=== PATIENT | female | born 1975 | race Caucasian/White ===

== ENCOUNTER → 2017-03-02 | Outpatient (REF) ==
--- NOTE | 2017-03-03 02:22 | REP ---
Clinical: Pain and disability. Technique: AP, lateral, coned-down views of the lumbosacral spine. Findings: AP view demonstrates moderate chronic scoliosis. Pins are identified in the presumed L4 and L5 right pedicles/vertebral bodies without adjoining stabilizing oneal. Laminectomy at the L4 - L5 levels suggested. Diffuse degenerative changes include endplate sclerosis with disc space narrowing and marginal osteophytes as well as hypertrophic facet changes. No obvious acute fracture / compression injury. Subluxation at the presumed L5-L1 level appears chronic. Impression: Chronic changes as described above. Correlation with MRI may be warranted if the patient remains symptomatic. Signed by Hemant Ross MD 03/03/2017 02:13 A
== END ==
LOC: M SMT 09:43
PROVIDERS: ATTEND Internal Medicine
DX: Z02.71 Encounter for disability determination (principal)

== ENCOUNTER → 2017-05-05 | Outpatient (CLI) | payer OTHER ==
[~2017-05-05] MED LIST: DULO1CAP; LEVO50TA5
--- NOTE | 2017-05-05 15:27 | ECGEPIP ---
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 Order Number: [id number] Reading MD: Dwayne Wu Measurements Intervals [place] Rate: 58 P: 7 NM: 160 QRS: -36 QRSD: 104 T: -10 QT: 402 QTc: 395 Interpretive Statements SINUS BRADYCARDIA WITH SINUS ARRHYTHMIA MARKED LEFT AXIS DEVIATION Poor R-wave progression, borderline precordial lead voltages. No prior ECG available for comparison at the time of interpretation. Electronically Signed On 05-05-2017 15:26:52 EDT by Dwayne Wu
== END ==
LOC: M EKG 10:44
PROVIDERS: ATTEND Nurse Practitioner Family
DX: I45.6 Pre-excitation syndrome (principal); R00.1 Bradycardia, unspecified; I49.9 Cardiac arrhythmia, unspecified

== ENCOUNTER → 2017-07-15 | Outpatient (CLI) | payer OTHER ==
--- NOTE | 2017-07-15 11:19 | REP ---
LEFT ANKLE SERIES, FOUR VIEWS: There is no evidence of an acute fracture, dislocation or intrinsic bone disease. There is mild soft tissue swelling. The ankle mortise is anatomic. IMPRESSION: No fracture or dislocation. Signed by Dustin Mathews MD 07/15/2017 02:23 P
== END ==
LOC: M WUC 10:38
PROVIDERS: ATTEND Physician Assistant
DX: J02.9 Acute pharyngitis, unspecified (principal); M25.572 Pain in left ankle and joints of left foot

== ENCOUNTER 2017-07-18 07:50 | Emergency (ER) | payer OTHER ==
[~2017-07-18] VITALS: Ht 149.9 cm; Wt 81.4 kg
[2017-07-18] MEDS ORDERED: LEVO50TA5 (08:09)
[2017-07-18] MEDS ORDERED: DULO1CAP (08:09)
[2017-07-18] MEDS ORDERED: KETOROLAC 30 MG/ML VIAL (J1885) IV ONE (08:30)
--- NOTE | 2017-07-18 08:41 | ECGEPIP ---
Stationary ECG Study [facility] - ED Test Date: 2017-07-18 Pat Name: GARRICK SCHNEIDER Department: Room: - Gender: F Credit Assistant: ami : 1975 Requested By: Olive Delgado Order Number: [id number] Reading MD: Liam Reyes Measurements Intervals [place] Rate: 65 P: 43 LA: 158 QRS: -39 QRSD: 107 T: 0 QT: 390 QTc: 407 Interpretive Statements SINUS RHYTHM LEFT AXIS DEVIATION POOR R WAVE PROGRESSION NSTTW ABNORMALITIES SIMILAR TO 05/05/17 Electronically Signed On 07-18-2017 8:40:58 EDT by Liam Reyes
[2017-07-18 08:47] LABS: BASO # 0.2 K/mm3 (0.0-0.2); BASO % 2.4 % (0.0-1.0); EOS # 0.3 K/mm3 (0.0-0.50); EOS % 4.1 % (0.0-3.0); LARGE UNSTAINED CELL # 0.1 K/mm3 (0.0-0.4); LARGE UNSTAINED CELL % 1.4 % (0.0-4.0); LYMPH # 2.4 K/mm3 (1.5-4.5); LYMPH % 35.3 % (24.0-44.0); MEAN CORPUSCULAR HEMOGLOBIN 31.1 pg (27.0-33.0); MEAN CORPUSCULAR HGB CONC 33.7 g/dl (32.0-36.5); MEAN CORPUSCULAR VOLUME 92.3 fl (80.0-96.0); MONO # 0.3 K/mm3 (0.0-0.8); NEUTROPHILS # 3.6 K/mm3 (1.8-7.7); NEUTROPHILS % 51.9 % (36.0-66.0); PLATELET COUNT, AUTOMATED 266 k/mm3 (150-450); RED CELL DISTRIBUTION WIDTH 12.6 % (11.5-14.5); WHITE BLOOD COUNT 6.8 K/mm3 (4.0-10.0)
[2017-07-18 08:52] LABS: ANION GAP 8 MEQ/L (8-16); BLOOD UREA NITROGEN 11 MG/DL (7-18); CALCIUM LEVEL 8.6 MG/DL (8.5-10.1); CARBON DIOXIDE LEVEL 26 MEQ/L (21-32); CHLORIDE LEVEL 105 MEQ/L (98-107); CREATININE FOR GFR 0.76 MG/DL (0.55-1.02); GLOMERULAR FILTRATION RATE > 60.0 (>58); GLUCOSE, FASTING 97 MG/DL (70-105); POTASSIUM SERUM 3.8 MEQ/L (3.5-5.1); SODIUM LEVEL 139 MEQ/L (136-145)
--- NOTE | 2017-07-18 09:12 | REP ---
Left lower extremity Duplex Doppler venous ultrasound: Real time compression and duplex Doppler interrogation of the left lower extremity deep venous system is performed. The left common femoral, superficial femoral and popliteal veins are fully compressible with transducer pressure and demonstrate normal spontaneous and phasic flow, without evidence of deep venous thrombosis. Impression: No evidence of deep venous thrombosis of the left lower extremity femoral popliteal venous system. Signed by Dustin Mathews MD 07/18/2017 09:03 A
--- NOTE | 2017-07-18 09:31 | REP ---
CHEST, TWO VIEWS: COMPARISON: 07/04/2016 There is no evidence of acute infiltrate. No pleural effusion is seen. The heart is normal in size. The mediastinal silhouette is unremarkable. The visualized osseous structures are intact. There is a hiatal hernia. There is curvature of the thoracolumbar spine, convex to the right. IMPRESSION: No acute pulmonary disease. Signed by Dustin Mathews MD 07/18/2017 05:29 P
[2017-07-18 12:14] VITALS: BP 111/66
== END 2017-07-18 12:11 | disposition home or self-care (01) ==
LOC: M ED 07:50
DX: R07.9 Chest pain, unspecified (principal); R11.0 Nausea; I45.6 Pre-excitation syndrome; Z79.899 Other long term (current) drug therapy
CPT/HCPCS: 71020; 80048; 82550; 82553; 85025; 85379; 93000; 93971; 96374; 99284; J1885

== ENCOUNTER → 2017-07-28 | Outpatient (CLI) | payer OTHER ==
[2017-07-28 10:16] LABS: MEAN CORPUSCULAR HEMOGLOBIN 30.2 pg (27.0-33.0); MEAN CORPUSCULAR HGB CONC 32.2 g/dl (32.0-36.5); MEAN CORPUSCULAR VOLUME 93.7 fl (80.0-96.0); RED CELL DISTRIBUTION WIDTH 12.5 % (11.5-14.5); WHITE BLOOD COUNT 9.2 10^3/uL (4.0-10.0)
[2017-07-28 11:23] LABS: ALBUMIN 3.6 GM/DL (3.2-5.2); ALKALINE PHOSPHATASE 78 U/L (45-117); ALT/SGPT 14 U/L (12-78); ANION GAP 6 MEQ/L (8-16); AST/SGOT 8 U/L (15-37); BILIRUBIN,TOTAL 0.5 MG/DL (0.2-1.0); BLOOD UREA NITROGEN 11 MG/DL (7-18); CALCIUM LEVEL 8.7 MG/DL (8.5-10.1); CARBON DIOXIDE LEVEL 29 MEQ/L (21-32); CHLORIDE LEVEL 105 MEQ/L (98-107); CHOLESTEROL LEVEL 185 MG/DL (<200); CREATININE FOR GFR 0.68 MG/DL (0.55-1.02); GLOMERULAR FILTRATION RATE > 60.0 (>58); GLUCOSE, FASTING 85 MG/DL (70-105); POTASSIUM SERUM 4.2 MEQ/L (3.5-5.1); SODIUM LEVEL 140 MEQ/L (136-145); T UPTAKE 35 % (30-39); THYROXINE (T4) 10.1 UG/DL (4.5-12.0); TOTAL PROTEIN 6.6 GM/DL (6.4-8.2); TRIGLYCERIDES LEVEL 125 MG/DL (<150)
== END ==
LOC: M LAB 09:30
PROVIDERS: ATTEND Nurse Practitioner Family
DX: E03.9 Hypothyroidism, unspecified (principal); R53.81 Other malaise; E78.5 Hyperlipidemia, unspecified; Z13.29 Encounter for screening for other suspected endocrine disorder

== ENCOUNTER → 2017-08-03 | Outpatient (REF) | payer OTHER | LOC: M LAB REF 12:55 | PROVIDERS: ATTEND Advanced Practice Midwife | DX: Z12.4 Encounter for screening for malignant neoplasm of cervix (principal) ==

== ENCOUNTER → 2017-08-05 | Outpatient (CLI) | payer OTHER ==
[~2017-08-05] MED LIST changes: +ISOVUE-370 76% 100ML VIAL (Q9967) As Ordered ONE
--- NOTE | 2017-08-05 15:02 | REP ---
Chest CT with IV contrast, CT pulmonary angiography: There are no comparison studies. There are no emboli in the pulmonary trunk or central pulmonary arteries. There are no emboli in the pulmonary lobe or segment branches. There are no infiltrates or effusions. There are no masses or nodules. There is no hilar, mediastinal or axillary adenopathy. There is a hiatal hernia measuring 6.9 cm transverse diameter. The thoracic aorta is unremarkable. Cardiac size is normal. There is no pericardial effusion. The visualized upper abdominal contents are unremarkable. Impression: There are no pulmonary emboli. Otherwise, essentially negative CT study of the chest except for a hiatal hernia. Signed by Dustin Alegre MD 08/05/2017 02:54 P
== END ==
LOC: M RAD 14:25
PROVIDERS: ATTEND Internal Medicine Cardiovascular Disease
DX: R06.02 Shortness of breath (principal)
CPT/HCPCS: 71275; Q9967

== ENCOUNTER → 2017-11-01 | Outpatient (REF) | payer OTHER, MEDICAID | LOC: M LAB REF 20:13 | DX: E03.9 Hypothyroidism, unspecified (principal) ==

== ENCOUNTER → 2018-01-12 | Outpatient (REF) | payer OTHER, MEDICAID ==
[2018-01-12 19:19] LABS: BASO # 0.1 10^3/uL (0.0-0.2); BASO % 1.7 % (0.0-1.0); EOS # 0.4 10^3/uL (0.0-0.50); EOS % 5.5 % (0.0-3.0); HEMATOCRIT 38.3 % (36.0-47.0); HEMOGLOBIN 12.4 g/dl (12.0-16.0); IMMATURE GRANULOCYTE % 0.4 % (0-3.0); LYMPH # 3.5 10^3/uL (1.5-4.5); LYMPH % 44.8 % (24.0-44.0); MEAN CORPUSCULAR HEMOGLOBIN 30.2 pg (27.0-33.0); MEAN CORPUSCULAR HGB CONC 32.4 g/dl (32.0-36.5); MEAN CORPUSCULAR VOLUME 93.4 fl (80.0-96.0); MONO # 0.6 10^3/uL (0.0-0.8); MONO % 7.9 % (0.0-5.0); NEUTROPHILS # 3.1 10^3/uL (1.8-7.7); NEUTROPHILS % 39.7 % (36.0-66.0); PLATELET COUNT, AUTOMATED 252 10^3/uL (150-450); RED CELL DISTRIBUTION WIDTH 13.2 % (11.5-14.5); WHITE BLOOD COUNT 7.9 10^3/uL (4.0-10.0)
[2018-01-12 19:32] LABS: TOTAL 25(OH) VITAMIN D 23.3 NG/ML (30.0-100.0)
[2018-01-12 19:35] LABS: ALBUMIN 3.8 GM/DL (3.2-5.2); ALBUMIN/GLOBULIN RATIO 1.06 (1.00-1.93); ALKALINE PHOSPHATASE 86 U/L (45-117); ALT/SGPT 16 U/L (12-78); ANION GAP 7 MEQ/L (8-16); AST/SGOT 13 U/L (7-37); BILIRUBIN,TOTAL 0.3 MG/DL (0.2-1.0); BLOOD UREA NITROGEN 12 MG/DL (7-18); CALCIUM LEVEL 8.8 MG/DL (8.5-10.1); CARBON DIOXIDE LEVEL 26 MEQ/L (21-32); CHLORIDE LEVEL 108 MEQ/L (98-107); CREATININE FOR GFR 0.83 MG/DL (0.55-1.30); GLOMERULAR FILTRATION RATE > 60.0 (>58); GLUCOSE, FASTING 86 MG/DL (70-100); IRON (FE) 66 UG/DL (50-170); POTASSIUM SERUM 4.6 MEQ/L (3.5-5.1); SODIUM LEVEL 141 MEQ/L (136-145); TOTAL PROTEIN 7.4 GM/DL (6.4-8.2)
[2018-01-12 21:19] LABS: ESTIMATED AVERAGE GLUCOSE 94 MG/DL (60-110); HEMOGLOBIN A1c 4.9 %
== END ==
LOC: M LAB REF 18:13
DX: E66.09 Other obesity due to excess calories (principal); E03.9 Hypothyroidism, unspecified; E55.9 Vitamin D deficiency, unspecified

== ENCOUNTER → 2018-05-11 | Outpatient (REF) | payer OTHER, MEDICAID ==
[2018-05-11 14:56] LABS: TOTAL 25(OH) VITAMIN D 58.6 NG/ML (30.0-100.0)
== END ==
LOC: M LAB REF 13:51
DX: R53.81 Other malaise (principal)
CPT/HCPCS: 84443

== ENCOUNTER → 2018-08-28 | Outpatient (REF) | payer OTHER, MEDICAID | LOC: M LAB REF 16:29 | DX: E03.9 Hypothyroidism, unspecified (principal) ==

== ENCOUNTER → 2018-11-27 | Outpatient (REF) | payer OTHER, MEDICAID ==
[~2018-11-27] MED LIST changes: -ISOVUE-370 76% 100ML VIAL (Q9967) As Ordered ONE
[2018-11-27 19:33] LABS: THYROID STIMULATING HORMONE 3.55 uIU/ML (0.358-3.740)
== END ==
LOC: M LAB REF 16:29
PROVIDERS: ATTEND Nurse Practitioner Adult Health
DX: E55.9 Vitamin D deficiency, unspecified (principal); E03.9 Hypothyroidism, unspecified

== ENCOUNTER → 2019-05-14 | Outpatient (REF) | payer OTHER, MEDICAID ==
[~2019-05-14] MED LIST changes: -DULO1CAP; +DULO1CAP4
[2019-05-14 17:59] LABS: ALBUMIN 3.5 GM/DL (3.2-5.2); ALT/SGPT 10 U/L (12-78); BILIRUBIN,TOTAL 0.5 MG/DL (0.2-1.0); BLOOD UREA NITROGEN 10 MG/DL (7-18); CALCIUM LEVEL 8.8 MG/DL (8.5-10.1); CARBON DIOXIDE LEVEL 26 MEQ/L (21-32); CHLORIDE LEVEL 110 MEQ/L (98-107); CHOLESTEROL LEVEL 220 MG/DL (<200); CHOLESTEROL RISK RATIO 4.074 (<5); CREATININE FOR GFR 0.84 MG/DL (0.55-1.30); GLOMERULAR FILTRATION RATE > 60.0 (>58); GLUCOSE, FASTING 83 MG/DL (70-100); HDL CHOLESTEROL 54 MG/DL (>40); LDL CHOLESTEROL 140 MG/DL (<100); NON-HDL-C 166 MG/DL; POTASSIUM SERUM 3.8 MEQ/L (3.5-5.1); SODIUM LEVEL 142 MEQ/L (136-145); TOTAL 25(OH) VITAMIN D 30.5 NG/ML (30.0-100.0); TOTAL PROTEIN 7.1 GM/DL (6.4-8.2); TRIGLYCERIDES LEVEL 128 MG/DL (<150)
[2019-05-14 18:15] LABS: HEMOGLOBIN A1c 5.5 %
== END ==
LOC: M LAB REF 16:44
PROVIDERS: ATTEND Nurse Practitioner Adult Health
DX: E03.9 Hypothyroidism, unspecified (principal); Z13.29 Encounter for screening for other suspected endocrine disorder

== ENCOUNTER → 2019-08-13 | Outpatient (REF) | payer OTHER, MEDICAID ==
[2019-08-13 19:44] LABS: THYROID STIMULATING HORMONE 4.93 uIU/ML (0.358-3.740); TOTAL 25(OH) VITAMIN D 36.5 NG/ML (30.0-100.0)
== END ==
LOC: M LAB REF 18:38
PROVIDERS: ATTEND Nurse Practitioner Adult Health
DX: E03.9 Hypothyroidism, unspecified (principal); E55.9 Vitamin D deficiency, unspecified

== ENCOUNTER → 2020-09-10 | Outpatient (REF) | payer OTHER, MEDICAID ==
[2020-09-10 16:58] LABS: FREE T4 1.59 NG/DL (0.76-1.46); THYROID STIMULATING HORMONE 1.78 uIU/ML (0.358-3.740); TOTAL 25(OH) VITAMIN D 49.1 NG/ML (30.0-100.0)
== END ==
LOC: M LAB REF 16:06
PROVIDERS: ATTEND Nurse Practitioner Adult Health
DX: E03.9 Hypothyroidism, unspecified (principal); E55.9 Vitamin D deficiency, unspecified

== ENCOUNTER → 2021-02-02 | Outpatient (REF) | payer OTHER, MEDICAID ==
[2021-02-02 17:43] LABS: BLOOD UREA NITROGEN 11 MG/DL (7-18); CALCIUM LEVEL 8.7 MG/DL (8.5-10.1); CARBON DIOXIDE LEVEL 26 MEQ/L (21-32); CHLORIDE LEVEL 108 MEQ/L (98-107); CREATININE FOR GFR 0.88 MG/DL (0.55-1.30); GLOMERULAR FILTRATION RATE > 60.0 (>58); GLUCOSE, FASTING 83 MG/DL (70-100); POTASSIUM SERUM 4.7 MEQ/L (3.5-5.1); SODIUM LEVEL 141 MEQ/L (136-145)
== END ==
LOC: M LAB REF 16:25
PROVIDERS: ATTEND Physician Assistant
DX: R60.0 Localized edema (principal)

== ENCOUNTER 2021-02-28 15:57 | Inpatient (IN) | payer MEDICAID, OTHER ==
[~2021-02-28] VITALS: Ht 149.9 cm; Wt 72.5 kg
[~2021-02-28 15:57] MED LIST changes: -LEVO50TA5; +LEVO50TA5 PO
[2021-02-28] MEDS ORDERED: sertraline (16:05)
[2021-02-28] MEDS ORDERED: ALBU8.5H INH (16:05)
[2021-02-28] MEDS ORDERED: FAMO1TAB11 PO (16:05)
[2021-02-28] MEDS ORDERED: CHLO125TA PO (16:05)
[2021-02-28] MEDS ORDERED: JUNETAB2 (16:06)
[2021-02-28 16:54] LABS: BASO # 0.1 10^3/uL (0.0-0.2); BASO % 0.6 % (0.0-1.0); EOS # 0.1 10^3/uL (0.0-0.5); EOS % 0.9 % (0.0-3.0); HEMATOCRIT 23.4 % (36.0-47.0); LYMPH # 1.5 10^3/uL (1.5-5.0); LYMPH % 9.4 % (24.0-44.0); MEAN CORPUSCULAR HEMOGLOBIN 18.8 pg (27.0-33.0); MEAN CORPUSCULAR HGB CONC 26.1 g/dl (32.0-36.5); MEAN CORPUSCULAR VOLUME 72.2 fl (80.0-96.0); MONO # 1.1 10^3/uL (0.0-0.8); MONO % 6.8 % (2.0-8.0); NEUTROPHILS # 12.6 10^3/uL (1.5-8.5); NEUTROPHILS % 78.6 % (36.0-66.0); PLATELET COUNT, AUTOMATED 336 10^3/uL (150-450); RED BLOOD COUNT 3.24 10^6/uL (4.00-5.40)
[2021-02-28 16:57] LABS: HEMOGLOBIN 6.1 g/dl (12.0-15.5)
[2021-02-28] MEDS ORDERED: PANTOPRAZOLE 40MG VIAL (C9113 PER 1) IV ONE (17:10)
[2021-02-28] MEDS ORDERED: PANTOPRAZOLE SODIUM 40 MG in D5W 50 ML IV SCH (17:10)
[2021-02-28 17:25] LABS: ALBUMIN 3.1 GM/DL (3.2-5.2); ALT/SGPT 9 U/L (12-78); BILIRUBIN,DIRECT 0.2 MG/DL (0.0-0.2); BILIRUBIN,TOTAL 0.6 MG/DL (0.2-1.0); BLOOD UREA NITROGEN 12 MG/DL (7-18); CALCIUM LEVEL 8.7 MG/DL (8.5-10.1); CARBON DIOXIDE LEVEL 24 MEQ/L (21-32); CHLORIDE LEVEL 104 MEQ/L (98-107); CPK CREATINE PHOSPHOKINASE 30 U/L (26-192); CREATININE FOR GFR 1.24 MG/DL (0.55-1.30); FERRITIN 7 NG/ML (8-252); FREE T4 1.15 NG/DL (0.76-1.46); GLOMERULAR FILTRATION RATE 50.3 (>58); GLUCOSE, FASTING 165 MG/DL (70-100); IRON (FE) 21 UG/DL (50-170); MAGNESIUM LEVEL 2.2 MG/DL (1.8-2.4); PERCENT SATURATION 4.5 % (13.2-45.0); POTASSIUM SERUM 3.5 MEQ/L (3.5-5.1); SODIUM LEVEL 137 MEQ/L (136-145); TOTAL IRON BINDING CAPACITY 465 UG/DL (250-450); TOTAL PROTEIN 7.4 GM/DL (6.4-8.2); TROPONIN I < 0.02 NG/ML (< 0.10)
--- NOTE | 2021-02-28 17:39 | HPEPDOC ---
[facility] Medical History & Physical Date of Admission February 28, 2021 Date of Service: February 28, 2021 Attending Physician: Otilia Urban MD History and Physical CHIEF COMPLAINT: increased weakness, dizziness, feeling faint HISTORY OF PRESENT ILLNESS: Patient is a 45-year-old female with past medical history of depression/anxiety, Gonnu-Fobxdppzl-Yplsu syndrome, hypothyroidism, GERD, scoliosis, arthritis of the back who presented to [facility] emergency room after feeling as though she was going to pass out while she was shopping today. The patient states she was in [employer] when she became suddenly lightheaded, dizzy, diaphoretic, had increased blurry vision. She was with a friend who then brought her to the emergency room to be further evaluated. The patient denied any loss of consciousness, chest pain, vomiting, abdominal pain, history of dysfunctional uterine bleeding, hematemesis, bright blood per rectum, dark stools, hematuria. The patient states that she has had increased lethargy over the past year associated at times with increased shortness of breath and palpitations. Over the last several weeks she feels as though her symptoms have worsened since she began taking Lasix for lower leg swelling. The patient also complains of lightheadedness, dizziness, nausea, blurry vision with her so seated shortness of breath at times. She particularly notices it with exertion and walking long distances. She denies history of ulcers, prior GI bleeds. In the ER vital signs showed blood pressure 102/67, temperature 98.9, heart rate 20806 sinus tachycardia, respiratory rate 1821, 100% on room air. Abnormal labs showed the VDC 16,000, H&H 6.1/23. Iron low at 21, blood sugar elevated at 165. Last H&H on file was from 01/12/2018 and was noted to be 12.4/38. Troponin normal, ECG baseline. The patient has no documented history of prediabetes or diabetes. Occult blood was positive. It was noted by the ER provider that during her occult blood testing it appeared as though her stools were dark but she denies any bright red blood per rectum or prior GI bleed. 3 units of blood were ordered and the patient was consented for blood transfusion. The patient was admitted by the hospitalist service for ? acute on chronic iron deficiency anemia, rule out GI bleed. REVIEW OF SYSTEMS: Neg except mentioned above PAST MEDICAL HISTORY: Depression/anxiety History of Pytwh-Rjbuuuxbo-Wmysk syndrome Hypothyroidism GERD Scoliosis Arthritis of the back PAST SURGICAL HISTORY: Back surgery Appendectomy FAMILY HISTORY: Father: Coronary artery disease, diabetes mellitus, hypertension. at 63 years old Mother: Cardiomyopathy, hypertension, coronary artery disease. at 52 years old SOCIAL HISTORY: Denies smoking, drug use. Drinks alcohol very rarely. Lives locally with her son. She is currently unemployed due to her handicaps. 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 She is a full code. ALLERGIES: Please see below. HOME MEDICATIONS: Please see below. PHYSICAL EXAMINATION: VS: blood pressure 102/67, temperature 98.9, heart rate 41470 sinus tachycardia, respiratory rate 1821, 100% on room air CONSTITUTIONAL: No acute distress, resting comfortably, AAO x 3, pale in appearance EYES: PERRLA, EOM intact, conjunctival pallor HENT, MOUTH: Normocephalic, atraumatic, moist mucous membranes, corrective lenses in place NECK: SUPPLE, no JVD, no lymphadenopathy, no carotid bruit CV: sinus tachycardia , S1S2 normal, no murmurs/rubs/gallops RESPIRATORY: Clear to auscultation bilaterally, no rales/rhonchi/wheezes GI: BS positive in 4 quadrants, soft, nontender, nondistended, no rebound or guarding, no organomegaly : Deferred MUSCULOSKELETAL: Normal ROM. No cyanosis, clubbing, swelling, joint deformity, +1 pitting extremity edema INTEGUMENTARY: Intact, no rashes, no lesions, no erythema NEUROLOGIC: Cranial Nerves II-XII are intact, no focal deficits PSYCHIATRIC: Mood and affect are normal LABORATORY DATA: Please see below IMAGING: CXR: pending ASSESSMENT: 45-year-old female with past medical history of depression/anxiety, Xbchj-Lzkzkdwal-Uvcuj syndrome, hypothyroidism, GERD, scoliosis, arthritis of the back admitted by the hospitalist service for ? acute on chronic iron deficiency anemia, rule out GI bleed. PLAN: Acute ? on chronic severe CLARICE likely 2/2 to GI bleed -Tachycardia, occult blood +, dark stools, low iron, H/H low, LH/dizziness with exertion worse -Denies bleeding hx or any bleeding currently, denies DUB -Last H/H from 12/2017 -Ordered 3 units PRBC to be transfused today, f/u post- tranfusion H/H -Will also benefit from Injectafer infusions prior to discharge as well -Will need colonoscopy/EGD to help identify cause of GI bleed. Called surgery to see if they would want to do that here or see as o/p -PT/INR pending, CBC daily after post-transfusion drawing -PPI BID, CLD for now Lightheadedness, dizziness likely 2/2 to severe CLARICE in combination of diuresis 2/2 to chlorthalidone -C/w treatment above -no events on tele, ECG sinus tachycardia, trop neg -To get tranfusions, hold of on fluids and chlorthalidone -Encourage PO intake -Orthostatics daily -Fall risk, tele SIRS +, r/o infectious source -+ tachycardia, RR >20, WBC 16K -WBC could just be reactive 2/2 to bleed, dehydration -F/u UA, BCx x 2 sets -F/u CXR, no need for additional imaging such as CT abd/pelvis as she denies abd pain, vomiting -Daily CBC, tele Lower extremity swelling, r/o lymphedema? -No increased coughing, no crackles on exam, +1 pitting edema, no JVD -F/u BNP -Holding chlorthalidone Hyperglycemia possibly 2/2 to stress, bleed but also r/o diabetes -BS 165 -f/u HbA1c, lipid panel -Can add FS and ISS if needed Hypothyroidism -TSH wnl -C/w levothyroxine Depression/anxiety -Stable, denies HI/SI -C/w home med Chronic arthritis / scoliosis of back -Stable -Tylenol PRN Hx of WPW syndrome -Follows with Dr. Howard as o/p -has not been of concern for many years -ECG NSR today -Tele GERD -PPI DVT px -SCD, tanvir. chemical px CI 2/2 to GI bleed DISPOSITION: Admitted as acute inpatient. Plan is d/c home when medically improved. Vital Signs Vital Signs Date Time Temp Pulse Resp B/P (MAP) Pulse Ox O2 Delivery O2 Flow Rate FiO2 02/28/21 16:45 104 18 103/58 (73) 99 Room Air 02/28/21 15:58 98.9 Laboratory Data Labs 24H Laboratory Tests 2 02/28/21 16:45: Immature Granulocyte % (Auto) 3.7H, Neutrophils (%) (Auto) 78.6H, Lymphocytes (%) (Auto) 9.4L, Monocytes (%) (Auto) 6.8, Eosinophils (%) (Auto) 0.9, Basophils (%) (Auto) 0.6, Neutrophils # (Auto) 12.6H, Lymphocytes # (Auto) 1.5, Monocytes # (Auto) 1.1H, Eosinophils # (Auto) 0.1, Basophils # (Auto) 0.1, Nucleated Red Blood Cells % (auto) 0.3H, Anion Gap 9, Glomerular Filtration Rate 50.3L, Calcium Level 8.7, Magnesium Level 2.2, Iron Level 21L, Total Iron Binding Capacity 465H, Transferrin % Saturation 4.5L, Ferritin 7L, Total Bilirubin 0.6, Direct Bilirubin 0.2, Aspartate Amino Transf (AST/SGOT) 7, Alanine Aminotransferase (ALT/SGPT) 9L, Alkaline Phosphatase 88, Total Creatine Kinase 30, Troponin I < 0.02, Total Protein 7.4, Albumin 3.1L, Albumin/Globulin Ratio 0.7L, Thyroid Stimulating Hormone (TSH) 3.420, Free Thyroxine 1.15 CBC/BMP Laboratory Tests 02/28/21 16:45 Home Medications Miscellaneous Medications Albuterol Sulfate (Albuterol Sulfate Hfa) 8.5 Gm Hfa.aer.ad Chlorthalidone (Chlorthalidone) 25 Mg Tablet Famotidine (Famotidine) 20 Mg Tablet Levothyroxine Sodium (Levothyroxine Sodium) 50 Mcg Tab Norethindrone AC-Eth Estradiol (Junel 1.5 mg-30 Mcg Tablet) 1 Each Tablet [sertraline] Allergies Coded Allergies: No Known Allergies (Unverified , 06/26/09) A-FIB/CHADSVASC A-FIB History Current/History of A-Fib/PAF?: No Current PO Anticoag Therapy: No Age/Risk Factor Scoring CHADSVASC: CHADSVASC Response (Comments) Value Age Risk Factor Age < 65 years old 0 Gender Risk Factor Female 1 Hx of CHF No 0 Hx of HTN No 0 Hx of Stroke/TIA/or VTE No 0 Hx of Diabetes No 0 Hx of Vascular Disease No 0 Total 1 Treatment Treatment ordered: Other Other anticoagulant ordered: scd Otilia Urban MD February 28, 2021 17:38
--- NOTE | 2021-02-28 17:56 | REP ---
INDICATION: near-syncope. COMPARISON: 07/18/2017 TECHNIQUE: The technique utilized in obtaining the radiograph has magnified the cardiac silhouette and attenuated the interstitial markings. FINDINGS: There is mild cardiomegaly accentuated by technique. The lung palmer are clear. The osseous structures are unchanged. IMPRESSION: There is no evidence of acute cardiopulmonary disease. <Electronically signed by Mario Powell > 02/28/21 0547
[2021-02-28 18:17] LABS: RSV AMPLIFICATION NEGATIVE (NEGATIVE)
[2021-02-28 18:26] LABS: PROTHROMBIN TIME 13.4 SECONDS (12.5-14.3)
[2021-02-28 18:27] LABS: PARTIAL THROMBOPLASTIN TIME 25.7 SECONDS (24.2-38.5)
[2021-02-28] MEDS ORDERED: ALBUTEROL 90 MCG/ACT 8GM HFA INHALER INH PRN (18:30)
[2021-02-28] MEDS ORDERED: NORE1TAB58 PO (18:40)
[2021-02-28] MEDS ORDERED: ZOLO100T PO (18:40)
[2021-02-28 18:45] VITALS: BP 108/69
[2021-02-28 18:58] LABS: CHOLESTEROL LEVEL 194 MG/DL (<200); CHOLESTEROL RISK RATIO 4.409 (<5); HDL CHOLESTEROL 44 MG/DL (>40); LDL CHOLESTEROL 119 MG/DL (<100); NON-HDL-C 150 MG/DL; NT-PRO BNP 331 PG/ML (<125); TRIGLYCERIDES LEVEL 156 MG/DL (<150)
[2021-02-28 19:21] LABS: CK-MB VALUE MASS < 1.0 NG/ML (<3.6); MB/CK RELATIVE INDEX 3.33 (< OR =4)
[2021-02-28] MEDS ORDERED: FERROUS SULFATE 325MG TAB PO SCH (21:00)
[2021-02-28] MEDS: PANTOPRAZOLE 40MG VIAL (C9113 PER 1) IV SCH (21:02)
[2021-02-28 21:16] VITALS: BP 146/60
[2021-02-28 21:31] VITALS: BP 122/79
[2021-02-28 22:16] VITALS: BP 115/73
[2021-02-28 23:16] VITALS: BP 119/76
[2021-03-01] VITALS (18 sets, daily range): BP systolic 103–137; BP diastolic 56–87
[2021-03-01] MEDS: LEVOTHYROXINE 50MCG TABLET (0.05MG) PO SCH (06:09)
[2021-03-01 07:35] LABS: HEMATOCRIT 32.5 % (36.0-47.0); MEAN CORPUSCULAR HEMOGLOBIN 22.5 pg (27.0-33.0); MEAN CORPUSCULAR HGB CONC 29.5 g/dl (32.0-36.5); MEAN CORPUSCULAR VOLUME 76.1 fl (80.0-96.0); PLATELET COUNT, AUTOMATED 255 10^3/uL (150-450); RED BLOOD COUNT 4.27 10^6/uL (4.00-5.40); WHITE BLOOD COUNT 13.3 10^3/uL (4.0-10.0)
[2021-03-01 07:41] LABS: HEMOGLOBIN 9.6 g/dl (12.0-15.5)
[2021-03-01 07:57] LABS: ALBUMIN 2.9 GM/DL (3.2-5.2); ALT/SGPT 8 U/L (12-78); BLOOD UREA NITROGEN 11 MG/DL (7-18); CARBON DIOXIDE LEVEL 23 MEQ/L (21-32); CHLORIDE LEVEL 106 MEQ/L (98-107); CREATININE FOR GFR 1.03 MG/DL (0.55-1.30); GLOMERULAR FILTRATION RATE > 60.0 (>58); GLUCOSE, FASTING 105 MG/DL (70-100); POTASSIUM SERUM 3.5 MEQ/L (3.5-5.1); SODIUM LEVEL 139 MEQ/L (136-145); TROPONIN I < 0.02 NG/ML (< 0.10)
[2021-03-01] MEDS: PANTOPRAZOLE 40MG VIAL (C9113 PER 1) IV SCH ×2 (08:21→20:16)
[2021-03-01] MEDS ORDERED: FERRIC CARBOXYMALTOSE INJ 750 MG, VIAL MATE ADAPTER 1 EACH in NS 250 ML IV ONE (10:00)
--- NOTE | 2021-03-01 10:02 | ECGEPIP ---
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
[2021-03-01] MEDS: SERTRALINE 100 MG TAB PO SCH (12:11)
--- NOTE | 2021-03-01 14:10 | IPNPDOC ---
Date Seen The patient was seen on 03/01/21. Progress Note SUBJECTIVE: Feels much improved s/p 3 units PRBC. H/H 9.632 this AM. Episode of chest pain early AM; however, cardiac w/u neg. LH, dizziness resolved and, with walking test this AM, she denied symptoms. IV iron today. Denies SOB, fevers, chills, n/v/d. OBJECTIVE: PHYSICAL EXAMINATION: VS: Please see below CONSTITUTIONAL: No acute distress, resting comfortably, AAO x 3, more pink in color today EYES: PERRLA, EOM intact, conjunctival pallor improved HENT, MOUTH: Normocephalic, atraumatic, moist mucous membranes, corrective lenses in place NECK: SUPPLE, no JVD, no lymphadenopathy, no carotid bruit CV: NSR , S1S2 normal, no murmurs/rubs/gallops RESPIRATORY: Clear to auscultation bilaterally, no rales/rhonchi/wheezes GI: BS positive in 4 quadrants, soft, nontender, nondistended, no rebound or guarding, no organomegaly : Deferred MUSCULOSKELETAL: Normal ROM. No cyanosis, clubbing, swelling, joint deformity, +1 pitting extremity edema INTEGUMENTARY: Intact, no rashes, no lesions, no erythema NEUROLOGIC: Cranial Nerves II-XII are intact, no focal deficits PSYCHIATRIC: Mood and affect are normal LABORATORY DATA: Please see below IMAGING: CXR: There is no evidence of acute cardiopulmonary disease. ASSESSMENT: 45-year-old female with past medical history of depression/anxiety, Umqkr-Rzmublofk-Hyblb syndrome, hypothyroidism, GERD, scoliosis, arthritis of the back admitted by the hospitalist service for ? acute on chronic iron deficiency anemia, rule out GI bleed. PLAN: Acute ? on chronic severe CLARICE likely 2/2 to GI bleed -S/p 3 units PRBC, h/H much improved to 9.6/32.5 (12/2017 12.), resolved LH/dizziness, NSR -Denies bleeding hx or any bleeding currently, denies DUB -To receive Injectafer infusion today -Will need colonoscopy/EGD to help identify cause of GI bleed. Called GI (Dr. Eagle) to see if they would want to do that here or see as o/p - recommending transfusions, d/c with f/u with their office -PT/INR pending, CBC daily after post-transfusion drawing -PPI BID, advancing diet today Lightheadedness, dizziness likely 2/2 to severe CLARICE in combination of diuresis 2/2 to chlorthalidone- resolved -C/w treatment above -no events on tele, ECG sinus tachycardia, trop neg -Encourage PO intake Leukocytosis possibly 2/2 bleed, dehydration -Improving, afebrile -UA neg, CXR neg, BCx x 2 sets pending -Not currently on abx -Daily CBC, tele Lower extremity swelling, r/o lymphedema? -No increased coughing, no crackles on exam, +1 pitting edema, no JVD -BNP 331 and minimally elevated -Holding chlorthalidone for now -Will need echocardiogram, f/u with cardiology as o/p Hyperglycemia possibly 2/2 to stress, bleed but also r/o diabetes -BS improved -f/u HbA1c -Can add FS and ISS if needed Hypothyroidism -TSH wnl -C/w levothyroxine Depression/anxiety -Stable, denies HI/SI -C/w home med Chronic arthritis / scoliosis of back -Stable -Tylenol PRN Hx of WPW syndrome -Follows with Dr. Howard as o/p -has not been of concern for many years -ECG NSR today -Tele GERD -PPI DVT px -SCD, tanvir. chemical px CI 2/2 to GI bleed DISPOSITION: Admitted as acute inpatient. Plan is d/c home when medically improved, likely 03/02/21 VS, I&O, 24H, Fishbone Vital Signs/I&O Vital Signs Date Time Temp Pulse Resp B/P (MAP) Pulse Ox O2 Delivery O2 Flow Rate FiO2 03/01/21 13:49 98.6 98 17 125/84 (98) 97 Room Air I&O- Last 24 Hours up to 6 AM 03/01/21 05:59 Intake Total 1420 ml Output Total 750 ml Balance 670 ml Laboratory Data 24H LABS Laboratory Tests 2 02/28/21 16:45: Immature Granulocyte % (Auto) 3.7H, Neutrophils (%) (Auto) 78.6H, Lymphocytes (%) (Auto) 9.4L, Monocytes (%) (Auto) 6.8, Eosinophils (%) (Auto) 0.9, Basophils (%) (Auto) 0.6, Neutrophils # (Auto) 12.6H, Lymphocytes # (Auto) 1.5, Monocytes # (Auto) 1.1H, Eosinophils # (Auto) 0.1, Basophils # (Auto) 0.1, Nucleated Red Blood Cells % (auto) 0.3H, Prothrombin Time 13.4, Prothromb Time International Ratio 1.00, Activated Partial Thromboplast Time 25.7, Anion Gap 9, Glomerular Filtration Rate 50.3L, Calcium Level 8.7, Magnesium Level 2.2, Iron Level 21L, Total Iron Binding Capacity 465H, Transferrin % Saturation 4.5L, Ferritin 7L, Total Bilirubin 0.6, Direct Bilirubin 0.2, Aspartate Amino Transf (AST/SGOT) 7, Alanine Aminotransferase (ALT/SGPT) 9L, Alkaline Phosphatase 88, Total Creatine Kinase 30, Creatine Kinase MB < 1.0, Creatine Kinase MB Relative Index 3.33, Troponin I < 0.02, AC-Xvp-Y-Type Natriuretic Peptide 331H, Total Protein 7.4, Albumin 3.1L, Albumin/Globulin Ratio 0.7L, Triglycerides Level 156H, Total Cholesterol 194, LDL Cholesterol 119H, Non-HDL Cholesterol (LDL + VLDL) 150, Total HDL Cholesterol 44, Cholesterol/HDL Ratio 4.409, Thyroid Stimulating Hormone (TSH) 3.420, Free Thyroxine 1.15 02/28/21 17:29: Coronavirus (COVID-19)(PCR) NEGATIVE, Influenza Type A (RT-PCR) NEGATIVE, Influenza Type B (RT-PCR) NEGATIVE, Respiratory Syncytial Virus (PCR) NEGATIVE 02/28/21 21:07: Urine Color YELLOW, Urine Appearance HAZY, Urine pH 5.0, Urine Specific [place] 1.003, Urine Protein NEGATIVE, Urine Glucose (UA) NEGATIVE, Urine Ketones NEGATIVE, Urine Blood 3+H, Urine Nitrite NEGATIVE, Urine Bilirubin NEGATIVE, Urine Urobilinogen 0.2, Urine Leukocyte Esterase NEGATIVE, Urine WBC (Auto) 4H, Urine RBC (Auto) 2, Urine Hyaline Casts (Auto) 0, Urine Bacteria (Auto) NEGATIVE, Urine Squamous Epithelial Cells 2, Urine Mucus (Auto) SMALL, Urine Sperm (Auto) 03/01/21 07:19: Nucleated Red Blood Cells % (auto) 0.2H, Anion Gap 10, Glomerular Filtration Rate > 60.0, Calcium Level 9.0, Total Bilirubin 1.0#, Aspartate Amino Transf (AST/SGOT) 7, Alanine Aminotransferase (ALT/SGPT) 8L, Alkaline Phosphatase 77, Troponin I < 0.02, Total Protein 7.0, Albumin 2.9L, Albumin/Globulin Ratio 0.7L CBC/BMP Laboratory Tests 02/28/21 16:45 03/01/21 07:19 Microbiology Microbiology 02/28/21 Blood Culture, Received Pending 02/28/21 Blood Culture, Received Pending Otilia Urban MD March 01, 2021 14:10
--- NOTE | 2021-03-01 19:18 | ECGEPIP ---
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 Order Number: [id number] Reading MD: Durga Jones Measurements Intervals [place] Rate: 85 P: 38 [place]: 150 QRS: -44 QRSD: 88 T: 5 QT: 368 QTc: 437 Interpretive Statements Normal sinus rhythm Left axis deviation/Left anterior hemiblock Poor R wave progression Compared to prior tracings (3) in the system No remarkable changes Electronically Signed on 03-01-2021 19:17:42 EDT by Durga Jones
[2021-03-01] MEDS: ONDANSETRON 4 MG TAB PO PRN (20:16)
[2021-03-01] MEDS: ACETAMINOPHEN TAB 650MG DOSE (2X325MG) PO PRN (22:03)
[2021-03-02] MEDS: ONDANSETRON 4 MG TAB PO PRN ×3 (02:49→20:09)
[2021-03-02] MEDS: LEVOTHYROXINE 50MCG TABLET (0.05MG) PO SCH (05:38)
[2021-03-02 06:00] VITALS: BP 131/81
[2021-03-02 06:03] LABS: HEMOGLOBIN 9.4 g/dl (12.0-15.5); MEAN CORPUSCULAR HEMOGLOBIN 22.5 pg (27.0-33.0); MEAN CORPUSCULAR HGB CONC 29.4 g/dl (32.0-36.5); MEAN CORPUSCULAR VOLUME 76.7 fl (80.0-96.0); PLATELET COUNT, AUTOMATED 265 10^3/uL (150-450); RED BLOOD COUNT 4.17 10^6/uL (4.00-5.40); WHITE BLOOD COUNT 17.4 10^3/uL (4.0-10.0)
[2021-03-02 06:31] LABS: ALBUMIN 2.7 GM/DL (3.2-5.2); ALT/SGPT 7 U/L (12-78); BILIRUBIN,TOTAL 0.7 MG/DL (0.2-1.0); BLOOD UREA NITROGEN 7 MG/DL (7-18); CALCIUM LEVEL 8.4 MG/DL (8.5-10.1); CARBON DIOXIDE LEVEL 22 MEQ/L (21-32); CHLORIDE LEVEL 109 MEQ/L (98-107); CREATININE FOR GFR 0.65 MG/DL (0.55-1.30); GLOMERULAR FILTRATION RATE > 60.0 (>58); GLUCOSE, FASTING 123 MG/DL (70-100); POTASSIUM SERUM 3.8 MEQ/L (3.5-5.1); SODIUM LEVEL 140 MEQ/L (136-145); TOTAL PROTEIN 6.7 GM/DL (6.4-8.2)
[2021-03-02 06:36] VITALS: BP_SYST 131; BP_SYST 132; BP_SYST 135; BP_DIAS 82; BP_DIAS 86; BP_DIAS 87
[2021-03-02] MEDS ORDERED: PROT1TAB2 PO (08:26)
[2021-03-02] MEDS ORDERED: COLA100C5 PO (08:33)
[2021-03-02] MEDS ORDERED: FERR325T3 PO (08:33)
[2021-03-02] MEDS: SERTRALINE 100 MG TAB PO SCH (09:15)
[2021-03-02] MEDS: PANTOPRAZOLE 40MG VIAL (C9113 PER 1) IV SCH ×2 (09:15→20:09)
--- NOTE | 2021-03-02 12:09 | REP ---
INDICATION: LLE swelling with upper thigh pain , r/o DVT COMPARISON: 2517. TECHNIQUE: Real time compression and duplex Doppler interrogation of the right lower extremity deep venous system is performed. FINDINGS: There is occlusive thrombus in the left common femoral and superficial femoral veins. There is nonocclusive thrombus in the popliteal vein. There is occlusive thrombus in the proximal portion of the greater saphenous vein. IMPRESSION: There is occlusive thrombus in the left common femoral and superficial femoral veins. There is nonocclusive thrombus in the popliteal vein. There is occlusive thrombus in the proximal portion of the greater saphenous vein. <Electronically signed by Dustin Mathews > 03/02/21 5407
[2021-03-02] MEDS ORDERED: HEPARIN DRIP 25,000 UNITS in IV 1 EA IV SCH (13:55)
[2021-03-02 14:00] VITALS: BP 119/91
--- NOTE | 2021-03-02 14:22 | IPNPDOC ---
Date Seen The patient was seen on 03/02/21. Progress Note SUBJECTIVE: No increased bleeding overnight, GI upset from Injectafer. LLE pain and increased swelling today, multiple clots seen on LLE doppler. D/w Fco, placed on heparin gtt and will see tonight. Aside from some nausea, denies increased s/s of bleeding, vomiting, shortness of breath, chest pain. OBJECTIVE: PHYSICAL EXAMINATION: VS: Please see below CONSTITUTIONAL: No acute distress, resting comfortably, AAO x 3 EYES: PERRLA, EOM intact, conjunctival pallor HENT, MOUTH: Normocephalic, atraumatic, moist mucous membranes, corrective lenses in place NECK: SUPPLE, no JVD, no lymphadenopathy, no carotid bruit CV: NSR , S1S2 normal, no murmurs/rubs/gallops RESPIRATORY: Clear to auscultation bilaterally, no rales/rhonchi/wheezes GI: BS positive in 4 quadrants, soft, nontender, nondistended, no rebound or guarding, no organomegaly : Deferred MUSCULOSKELETAL: Normal ROM. No cyanosis, clubbing, swelling, joint deformity, +1 pitting extremity edema LLE L >R INTEGUMENTARY: Intact, no rashes, no lesions, no erythema NEUROLOGIC: Cranial Nerves II-XII are intact, no focal deficits PSYCHIATRIC: Mood and affect are normal LABORATORY DATA: Please see below IMAGING: LLE doppler: There is occlusive thrombus in the left common femoral and superficial femoral veins. There is nonocclusive thrombus in the popliteal vein. There is occlusive thrombus in the proximal portion of the greater saphenous vein. CXR: No evidence of CP disease ASSESSMENT: 45-year-old female with past medical history of depression/anxiety, Ddnhy-Jyyhtkkdd-Ceuqr syndrome, hypothyroidism, GERD, scoliosis, arthritis of the back admitted by the hospitalist service for ? acute on chronic iron deficiency anemia, rule out GI bleed. PLAN: Occlusive and nonocclusive thrombi LLE, likely provoked 2/2 to Estrogen use -On Estrogen at home, no other RF. Chronic swelling (L>R) for many months w ithout prior US on file -LLE doppler above -Concomitant GI bleed -Plan after discussing with GI and approved by patient: starting on heparin gtt, Dr. Eagle to see this evening. For possible EGD and colonoscopy 5/11/21. -Heparin gtt protocol, watch for s/s of bleeding Acute ? on chronic severe CLARICE likely 2/2 to GI bleed -Occult blood +, dark stools on admission, low iron -Denies bleeding hx or any bleeding currently, denies DUB -H/H today s/p 3 units PRBC and 1 dose Injectafer 9. (BL from 12/2017 12) -Will need colonoscopy/EGD to help identify cause of GI bleed. Dr. Eagle consulted and will see this evening, f/u recommendations for further workup -Watch for worsening labs with being on heparin gtt -PPI BID, CLD for now Lightheadedness, dizziness likely 2/2 to severe CLARICE in combination of diuresis 2/2 to chlorthalidone- resolved -C/w treatment above -no events on tele, ECG sinus tachycardia, trop neg -Orthostatics neg -S/p blood and iron infusion, have been holding chlorthalidone -Encourage PO intake Leukocytosis poss reactive 2/2 to clot burden vs. 2/2 to GI upset from Injectafer infusion 03/01/21 -No other identified infection: CXR neg, BCx neg, UA neg, no abdominal pain on admission -Afebrile but WBC increased further today, resolved tachycardia -F/u daily labs, tx above Hyperglycemia possibly 2/2 to stress, bleed but also r/o diabetes -BS 123 this AM -HbA1c sent out of hospital due to being out of certain "parameters"- per lab this is usually due to level being too high or (more commonly) too low- perhaps low admission H/H contributed to this -Lipid panel completed -Can add FS and ISS if needed Hypothyroidism -TSH wnl -C/w levothyroxine Depression/anxiety -Stable, denies HI/SI -C/w home med Chronic arthritis / scoliosis of back -Stable -Tylenol PRN Hx of WPW syndrome -Follows with Dr. Howard as o/p -has not been of concern for many years -ECG NSR today -Tele GERD -PPI BID DVT px -heparin gtt DISPOSITION: Admitted as acute inpatient. Dr. Eagle consulted and will see this evening. Plan is d/c home when medically improved VS, I&O, 24H, Fishbone Vital Signs/I&O Vital Signs Date Time Temp Pulse Resp B/P (MAP) Pulse Ox O2 Delivery O2 Flow Rate FiO2 03/02/21 06:36 84 132/82 (99) 88 135/86 (102) 100 131/87 (102) 03/02/21 06:00 98.2 17 95 Room Air I&O- Last 24 Hours up to 6 AM 03/02/21 06:00 Intake Total 2070 ml Output Total 500 ml Balance 1570 ml Laboratory Data 24H LABS Laboratory Tests 2 03/02/21 05:49: Nucleated Red Blood Cells % (auto) 0.3H, Anion Gap 9, Glomerular Filtration Rate > 60.0, Calcium Level 8.4L, Total Bilirubin 0.7, Aspartate Amino Transf (AST/SGOT) 10, Alanine Aminotransferase (ALT/SGPT) 7L, Alkaline Phosphatase 78, Total Protein 6.7, Albumin 2.7L, Albumin/Globulin Ratio 0.7L CBC/BMP Laboratory Tests 03/02/21 05:49 Microbiology Microbiology 02/28/21 Blood Culture - Preliminary, Resulted No growth after 24 hours . All specim... 02/28/21 Blood Culture - Preliminary, Resulted No growth after 24 hours . All specim... Otilia Urban MD March 02, 2021 14:22
[2021-03-02 19:22] LABS: VITAMIN B12 LEVEL 764 PG/ML
[2021-03-02 22:00] VITALS: BP 120/65
[2021-03-02] MEDS ORDERED: CALCIUM CARBONATE 500 MG CHEW U/D PO PRN (23:15)
[2021-03-02] MEDS ORDERED: HEPARIN SOD (PORCINE) 5000UNITS/ML 1ML VIAL/SYRINGE IV PRN (23:20)
[2021-03-02] MEDS: ACETAMINOPHEN TAB 650MG DOSE (2X325MG) PO PRN (23:29)
[2021-03-03 05:36] LABS: HEMATOCRIT 32.2 % (36.0-47.0); HEMOGLOBIN 9.4 g/dl (12.0-15.5); MEAN CORPUSCULAR HEMOGLOBIN 22.5 pg (27.0-33.0); MEAN CORPUSCULAR HGB CONC 29.2 g/dl (32.0-36.5); MEAN CORPUSCULAR VOLUME 77.2 fl (80.0-96.0); PLATELET COUNT, AUTOMATED 327 10^3/uL (150-450); RED BLOOD COUNT 4.17 10^6/uL (4.00-5.40); WHITE BLOOD COUNT 20.2 10^3/uL (4.0-10.0)
[2021-03-03] MEDS: SUCRALFATE 1 GM TAB PO PRN ×2 (05:55→10:33)
[2021-03-03] MEDS: LEVOTHYROXINE 50MCG TABLET (0.05MG) PO SCH (05:55)
[2021-03-03 06:00] VITALS: BP 126/78
[2021-03-03 06:01] LABS: ALBUMIN 2.5 GM/DL (3.2-5.2); ALT/SGPT 7 U/L (12-78); BILIRUBIN,TOTAL 0.5 MG/DL (0.2-1.0); BLOOD UREA NITROGEN 7 MG/DL (7-18); CALCIUM LEVEL 8.7 MG/DL (8.5-10.1); CARBON DIOXIDE LEVEL 28 MEQ/L (21-32); CHLORIDE LEVEL 107 MEQ/L (98-107); CREATININE FOR GFR 0.64 MG/DL (0.55-1.30); GLOMERULAR FILTRATION RATE > 60.0 (>58); GLUCOSE, FASTING 121 MG/DL (70-100); POTASSIUM SERUM 3.4 MEQ/L (3.5-5.1); SODIUM LEVEL 138 MEQ/L (136-145); TOTAL PROTEIN 7.2 GM/DL (6.4-8.2); TROPONIN I < 0.02 NG/ML (< 0.10)
[2021-03-03 06:13] VITALS: BP_SYST 124; BP_SYST 126; BP_SYST 152; BP_DIAS 78; BP_DIAS 86; BP_DIAS 90
[2021-03-03] MEDS: SERTRALINE 100 MG TAB PO SCH (09:34)
[2021-03-03] MEDS: PANTOPRAZOLE 40MG VIAL (C9113 PER 1) IV SCH (09:34)
[2021-03-03] MEDS: PANTOPRAZOLE 40MG TAB (PROTONIX) PO SCH ×2 (10:31→22:25)
[2021-03-03] MEDS: ACETAMINOPHEN TAB 650MG DOSE (2X325MG) PO PRN ×2 (10:33→22:25)
[2021-03-03 11:46] LABS: PARTIAL THROMBOPLASTIN TIME 51.9 SECONDS (24.2-38.5)
[2021-03-03 12:43] LABS: INR 1.12; PROTHROMBIN TIME 14.7 SECONDS (12.5-14.3)
[2021-03-03] MEDS: APIXABAN 5 MG TAB (ELIQUIS) PO SCH ×2 (13:41→22:31)
[2021-03-03 14:00] VITALS: BP 128/87
--- NOTE | 2021-03-03 14:00 | IPNPDOC ---
Text Note Date of Service The patient was seen on 03/03/21. NOTE SUBJECTIVE: Denies noted s/s of bleeding, vomiting, shortness of breath, chest pain. OBJECTIVE: VS: Please see below CONSTITUTIONAL: No acute distress, resting comfortably, AAO x 3 EYES: PERRLA, EOM intact, conjunctival pallor HENT, MOUTH: Normocephalic, atraumatic, moist mucous membranes, corrective lenses in place NECK: SUPPLE, no JVD, no lymphadenopathy, no carotid bruit CV: NSR , S1S2 normal, no murmurs/rubs/gallops RESPIRATORY: Clear to auscultation bilaterally, no rales/rhonchi/wheezes GI: BS positive in 4 quadrants, soft, nontender, nondistended, no rebound or guarding, no organomegaly : Deferred MUSCULOSKELETAL: Normal ROM. No cyanosis, clubbing, swelling, joint deformity, +1 pitting extremity edema LLE L >R INTEGUMENTARY: Intact, no rashes, no lesions, no erythema NEUROLOGIC: Cranial Nerves II-XII are intact, no focal deficits PSYCHIATRIC: Mood and affect are normal LABORATORY DATA: Reviewed WBC 20.2 Hgb 9.4 platelets 327 na 138 K 3.4 Cr 0.64 IMAGING: LLE doppler: There is occlusive thrombus in the left common femoral and superficial femoral veins. There is nonocclusive thrombus in the popliteal vein. There is occlusive thrombus in the proximal portion of the greater saphenous vein. CXR: No evidence of CP disease ASSESSMENT: 45-year-old W with past medical history of depression/anxiety, Mlszs-Xagtijuse-Fsbfk syndrome, hypothyroidism, GERD, scoliosis, arthritis of the back admitted by the hospitalist service for acute on chronic iron deficiency anemia to rule out GI bleed. PLAN: LLE DVT, likely provoked 2/2 to Estrogen use -On Estrogen at home, no other RF. Chronic swelling (L>R) for many months without prior US on file -LLE doppler above -switch to eliquis from heparin gtt Acute ? 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 -H/H today is stable, s/p 3 units PRBC and 1 dose Injectafer 9.4/32 (BL from 12/2017 12.) -Suspicion of GI bleeding without evidence of it. Also reports history of chronic -Dr. Eagle saw patient, no cinda evidence of GIB with long history of menometrorrhagia and recommended outpatient GI f/u for possible EGD and colonoscopy though he had low suspicion this is GI driven. Lightheadedness, dizziness likely 2/2 to severe CLARICE in combination of diuresis 2/2 to chlorthalidone- resolved -C/w treatment above -no events on tele, ECG sinus tachycardia, trop neg -Orthostatics neg -S/p blood and iron infusion, have been holding chlorthalidone -Encourage PO intake Leukocytosis poss reactive 2/2 to clot burden vs. 2/2 to GI upset from Injectafer infusion 03/01/21 -No other identified infection: CXR neg, BCx neg, UA neg, no abdominal pain on admission -Afebrile but WBC increased further today?, resolved tachycardia -F/u daily labs, tx above Hyperglycemia possibly 2/2 to stress, bleed but also r/o diabetes -BS 123 this AM -HbA1c sent out of hospital due to being out of certain "parameters"- per lab this is usually due to level being too high or (more commonly) too low? 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 Howard as o/p -has not been of concern for many years -ECG NSR on admission -DC telemetry GERD -PPI PO daily DVT px -switch heparin gtt to eliquis DISPOSITION: Admitted as acute inpatient. Plan is d/c home tomorrow AM after trial of regular diet and switch to eliquis. VS,Fishbone, I+O VS, Fishbone, I+O Laboratory Tests 03/03/21 05:28 Vital Signs Date Time Temp Pulse Resp B/P (MAP) Pulse Ox O2 Delivery O2 Flow Rate FiO2 03/03/21 06:13 69 126/78 (94) 80 152/90 (110) 93 124/86 (99) 03/03/21 06:00 97.0 17 95 Room Air I&O- Last 24 Hours up to 6 AM 03/03/21 06:00 Intake Total 1400 ml Output Total 600 ml Balance 800 ml YAHAIRA WOOTEN MD March 03, 2021 10:53
--- NOTE | 2021-03-03 15:03 | ECGEPIP ---
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 Order Number: [id number] Reading MD: Dwayne Wu Measurements Intervals Sylva Rate: 74 P: 35 IA: 142 QRS: -47 QRSD: 90 T: 12 QT: 384 QTc: 426 Interpretive Statements Normal sinus rhythm Left anterior fascicular block Minimal voltage criteria for LVH, may be normal variant ( Micha product ) Poor R wave progression Nonspecific T wave abnormality No significant change compared with 03/01/2021. Electronically Signed on 03-03-2021 15:03:41 EDT by Dwayne Wu
[2021-03-03] MEDS: ONDANSETRON 4 MG TAB PO PRN (18:19)
[2021-03-03 22:00] VITALS: BP 148/86
[2021-03-04 06:00] VITALS: BP 129/83
[2021-03-04] MEDS: LEVOTHYROXINE 50MCG TABLET (0.05MG) PO SCH (06:06)
[2021-03-04 06:57] VITALS: BP_SYST 134; BP_DIAS 87; BP_DIAS 93
[2021-03-04] MEDS: SERTRALINE 100 MG TAB PO SCH (09:58)
[2021-03-04] MEDS: ACETAMINOPHEN TAB 650MG DOSE (2X325MG) PO PRN (09:58)
[2021-03-04] MEDS: APIXABAN 5 MG TAB (ELIQUIS) PO SCH (09:58)
[2021-03-04] MEDS: PANTOPRAZOLE 40MG TAB (PROTONIX) PO SCH (09:58)
[2021-03-04] MEDS ORDERED: PANT40TA29 PO (10:03)
[2021-03-04] MEDS ORDERED: ELIQ5TAB PO (10:03)
[2021-03-04 10:06] LABS: HEMATOCRIT 35.6 % (36.0-47.0); HEMOGLOBIN 10.1 g/dl (12.0-15.5); MEAN CORPUSCULAR HEMOGLOBIN 22.5 pg (27.0-33.0); MEAN CORPUSCULAR HGB CONC 28.4 g/dl (32.0-36.5); MEAN CORPUSCULAR VOLUME 79.5 fl (80.0-96.0); PLATELET COUNT, AUTOMATED 386 10^3/uL (150-450); RED BLOOD COUNT 4.48 10^6/uL (4.00-5.40); WHITE BLOOD COUNT 15.8 10^3/uL (4.0-10.0)
--- NOTE | 2021-03-04 12:57 | DS.PDOC ---
Discharge Summary General Date of Admission February 28, 2021 at 17:29 Date of Discharge 03/04/2021 Attending Physician: YAHAIRA WOOTEN MD Discharge Summary PROCEDURES PERFORMED DURING STAY: None ADMITTING DIAGNOSES: Symptomatic anemia DISCHARGE DIAGNOSES: Symptomatic anemia with CLARICE i/s/o history c/w menometrorrhagia LLE DVT Depression/anxiety History of Jnqcn-Sbqpbqeya-Gselh syndrome Hypothyroidism GERD Scoliosis Arthritis of the back COMPLICATIONS/CHIEF COMPLAINT: Gi Bleed. HISTORY OF PRESENT ILLNESS: 45-year-old W with past medical history of depression/anxiety, W mnvi-Zytkpgtmp-Itlvr syndrome, hypothyroidism, GERD, scoliosis, arthritis of the back who presented to [facility] emergency room after feeling as though she was going to pass out while she was shopping. The patient stated she was in [employer] when she became suddenly lightheaded, dizzy, diaphoretic, had increased blurry vision and then had a friend who brought her to the emergency room to be further evaluated. The patient denied any loss of consciousness, chest pain, vomiting, abdominal pain, history of dysfunctional uterine bleeding, hematemesis, bright blood per rectum, dark stools, hematuria. The patient states that she has had increased lethargy over the past year associated at times with increased shortness of breath and palpitations. Over the last several weeks she feels as though her symptoms have worsened since she began taking Lasix for lower leg swelling. The patient also complained of lightheadedness, dizziness, nausea, blurry vision with her so seated shortness of breath at times. She particularly noticed it with exertion and walking long distances. She denied a history of u lcers or prior history of GI bleeds. HOSPITAL COURSE: In the ER vital signs showed blood pressure 102/67, temperature 98.9, heart rate 02022 sinus tachycardia, respiratory rate 1821, 100% on room air. Abnormal labs showed the WBC 16,000, H&H 6.1/23. Iron low at 21, blood sugar elevated at 165. Last H&H on file was from 01/12/2018 and was noted to be 12.4/38. Troponin normal, ECG baseline. The patient had no documented history of prediabetes or diabetes. Occult blood was reportedly positive. It was noted by the ER provider that during her occult blood testing it appeared as though her stools were dark but she denies any bright red blood per rectum or prior GI bleed. On further investigation and asking, she reported a history of heavy irregular menses for which she was told that she was iron deficient and is established with gynecology. During her ER exam she actually was have menstrual bleeding but denied a history of dark, tarry stool or blood stool ever. 3 units of blood were ordered and the patient was consented for blood transfusion. The patient was admitted by the hospitalist service for acute on chronic iron deficiency anemia to rule out GI bleed. She ultimately received 3u pRBCs in total with stable H/H for the rest of her hospital stay. She was given 1 dose of injectafer with mild GI upset after and was later begun on BID ferrous sulfate for iron repletion. I called Dr. Eagle given that he had initially been consulted for potential GIB and he agreed that he also had low suspicion of GIB and suspected that her losses were likely gynecological and not from the GI tract. He recommended outpatient GI referral for elective EGD/colo to r/o GIB but did not see an i ndication for emergent inpatient scoping. Her course was c/b by noted LLE swelling for which she had a venous doppler US and was found to have a occlusive thrombus in the left common femoral and superficial femoral veins, nonocclusive thrombus in the popliteal vein and an occlusive thrombus in the proximal portion of the greater saphenous vein likely 2/2 estrogen hormonal therapy and so she was urged to stop taking it until she is evaluated by gynecology and PCP in the outpatient setting. She was started on eliquis for her DVT. DISCHARGE MEDICATIONS: Please see below. ALLERGIES: Please see below. PHYSICAL EXAMINATION ON DISCHARGE: VITAL SIGNS: Please see below. CONSTITUTIONAL: No acute distress, resting comfortably, AAO x 3 EYES: PERRLA, EOM intact, conjunctival pallor HENT, MOUTH: Normocephalic, atraumatic, moist mucous membranes, corrective lenses in place NECK: SUPPLE, no JVD, no lymphadenopathy, no carotid bruit CV: NSR , S1S2 normal, no murmurs/rubs/gallops RESPIRATORY: Clear to auscultation bilaterally, no rales/rhonchi/wheezes GI: BS positive in 4 quadrants, soft, nontender, nondistended, no rebound or guarding, no organomegaly : Deferred MUSCULOSKELETAL: Normal ROM. No cyanosis, clubbing, swelling, joint deformity, +1 pitting extremity edema LLE L >R INTEGUMENTARY: Intact, no rashes, no lesions, no erythema NEUROLOGIC: Cranial Nerves II-XII are intact, no focal deficits PSYCHIATRIC: Mood and affect are normal LABORATORY DATA: Please see below. IMAGING: CXR: No acute pathology LLE doppler venous US: There is occlusive thrombus in the left common femoral and superficial femoral veins. There is nonocclusive thrombus in the popliteal vein. There is occlusive thrombus in the proximal portion of the greater saphenous vein. IMPRESSION: There is occlusive thrombus in the left common femoral and superficial femoral veins. There is nonocclusive thrombus in the popliteal vein. There is occlusive thrombus in the proximal portion of the greater saphenous vein. PROGNOSIS: Good ACTIVITY: As tolerated DIET: regular DISCHARGE PLAN: Home DISPOSITION: Home DISCHARGE INSTRUCTIONS: Eliquis 10mg BID for 6d, then 5mg BID thereafter. Ferrous sulfate 325 mg BID. Close PCP and junior qa analyst follow up. ITEMS TO FOLLOWUP ON ON OUTPATIENT: Anemia Menometrorrhagia DVT DISCHARGE CONDITION: Stable TIME SPENT ON DISCHARGE: 34 minutes. Vital Signs/I&Os Vital Signs Date Time Temp Pulse Resp B/P (MAP) Pulse Ox O2 Delivery O2 Flow Rate FiO2 03/04/21 06:57 83 134/87 (103) 96 134/93 (107) 96 134/93 (107) 03/04/21 06:00 98.0 20 94 Room Air I&O- Last 24 Hours up to 6 AM 03/04/21 06:00 Intake Total 1310 ml Output Total 350 ml Balance 960 ml Laboratory Data Labs 24H Laboratory Tests 2 03/04/21 04:14: Activated Partial Thromboplast Time 49.6H 03/04/21 09:32: Activated Partial Thromboplast Time 43.2H, Nucleated Red Blood Cells % (auto) 0.0 CBC/BMP Laboratory Tests 03/04/21 09:32 Microbiology Microbiology 03/03/21 Stool Occult Blood (AMY) - Final, Complete 02/28/21 Blood Culture - Preliminary, Resulted No Growth after 72 hours. All specime... 02/28/21 Blood Culture - Preliminary, Resulted No Growth after 72 hours. All specime... Discharge Medications Scheduled Apixaban (Eliquis) 5 Mg Tablet, 10 MG PO ASDIRECTED 10mg twice daily for 6d, then 5mg twice daily thereafter. Chlorthalidone (Chlorthalidone) 25 Mg Tablet, 25 MG PO DAILY, (Reported) Docusate Sodium (Colace) 100 Mg Capsule, 100 MG PO DAILY Ferrous Sulfate (Ferrous Sulfate) 325 Mg Tablet.dr, 325 MG PO BID Levothyroxine Sodium (Levothyroxine Sodium) 50 Mcg Tab, 50 MCG PO DAILY, (Reported) Norethindrone AC-Eth Estradiol (Elizabeth 21 1.5 mg-30 Mcg Tab) 1 Each Tablet, 1 TAB PO DAILY, (Reported) Pantoprazole Sodium (Protonix) 40 Mg Tablet.dr, 40 MG PO BID Pantoprazole Sodium (Pantoprazole Sodium) 40 Mg Tablet.dr, 40 MG PO BID Sertraline Hcl (Zoloft) 100 Mg Tablet, 100 MG PO DAILY, (Reported) Scheduled PRN Albuterol Sulfate (Albuterol Sulfate Hfa) 8.5 Gm Hfa.aer.ad, 2 PUFF INH Q4H PRN for PAIN, (Reported) Allergies Coded Allergies: No Known Allergies (Unverified , 06/26/09) YAHAIRA WOOTEN MD March 04, 2021 12:57
== END 2021-03-04 13:38 | disposition home or self-care (01) | DRG 663 ==
LOC: M ED 15:57 → M ED INP 17:29 → ENRESERV 18:02 → M MSPAV 18:40
PROVIDERS: ADMIT Internal Medicine; ATTEND Internal Medicine
PROC: 30233N1 Transfusion of Nonautologous Red Blood Cells into Peripheral Vein, Percutaneous Approach (ICD-10-PCS; principal; 2021-02-28)
DX: D50.9 Iron deficiency anemia, unspecified (principal); M41.9 Scoliosis, unspecified; F32.9 Major depressive disorder, single episode, unspecified; N92.1 Excessive and frequent menstruation with irregular cycle; R53.1 Weakness; F41.9 Anxiety disorder, unspecified; I45.6 Pre-excitation syndrome; E03.9 Hypothyroidism, unspecified; K21.9 Gastro-esophageal reflux disease without esophagitis; M47.9 Spondylosis, unspecified; R00.0 Tachycardia, unspecified; Z90.49 Acquired absence of other specified parts of digestive tract; D72.829 Elevated white blood cell count, unspecified; R60.0 Localized edema; R07.89 Other chest pain; I82.4Z2 Acute embolism and thrombosis of unspecified deep veins of left distal lower extremity; R73.9 Hyperglycemia, unspecified; Z79.899 Other long term (current) drug therapy; Z20.822 Contact with and (suspected) exposure to COVID-19

== ENCOUNTER 2021-04-20 12:33 | Emergency (ER) | payer OTHER ==
[~2021-04-20] VITALS: Ht 149.9 cm; Wt 76.8 kg
[~2021-04-20 12:33] MED LIST changes: +ALBU8.5H INH; +CHLO125TA PO; +COLA100C5 PO; +ELIQ5TAB PO; +FAMO1TAB11 PO; +FERR325T3 PO; +JUNETAB2; +NORE1TAB58 PO; +PANT40TA29 PO; +PROT1TAB2 PO; +ZOLO100T PO; +sertraline
--- NOTE | 2021-04-20 16:09 | REP ---
INDICATION: pain, swelling, hx clots COMPARISON: None. TECHNIQUE: Mathews scale and color Doppler evaluation using linear high frequency transducer. FINDINGS: Ultrasound examination of the right lower extremity deep venous structures demonstrates nonocclusive thrombus extending from the common femoral vein to the distal superficial femoral vein followed by occluding thrombus at the popliteal vein. Evaluation of the more distal calf veins is limited due to surrounding edema. Contralateral CFV demonstrates nonocclusive thrombus consistent with the patient's given history of left lower extremity DVT. IMPRESSION: Occlusive and nonocclusive thrombus in the right common femoral through popliteal vein. <Electronically signed by Hemant Ross > 04/20/21 [id number]
[2021-04-20 17:38] VITALS: BP 125/82
== END 2021-04-20 17:42 | disposition home or self-care (01) ==
LOC: M ED 12:33
DX: I82.401 Acute embolism and thrombosis of unspecified deep veins of right lower extremity (principal); Z91.030 Bee allergy status; Z79.899 Other long term (current) drug therapy; Z79.01 Long term (current) use of anticoagulants

== ENCOUNTER 2021-07-28 11:16 | Emergency (ER) | payer OTHER ==
[~2021-07-28] VITALS: Ht 149.9 cm; Wt 75.0 kg
--- NOTE | 2021-07-28 14:04 | REP ---
INDICATION: pain and swelling behind knee COMPARISON: 03/02/2021, 04/20/2021 TECHNIQUE: Mathews scale and color Doppler evaluation using linear high frequency transducer. FINDINGS: Ultrasound examination of the left lower extremity demonstrates nonocclusive thrombus from the common femoral vein to the popliteal vein as well as within the proximal greater saphenous vein. Left calf veins are not evaluated due to edema and swelling. Limited examination of the right common femoral vein also demonstrates small focus of nonocclusive thrombus. IMPRESSION: Nonocclusive likely chronic thrombus improved as compared with prior examinations dated 04/20/2021 and 03/02/2021. <Electronically signed by Hemant Ross > 07/28/21 1400
[2021-07-28 15:31] VITALS: BP 138/75
== END 2021-07-28 15:32 | disposition home or self-care (01) ==
LOC: M ED 11:16
DX: I82.402 Acute embolism and thrombosis of unspecified deep veins of left lower extremity (principal); R60.9 Edema, unspecified; J45.909 Unspecified asthma, uncomplicated; E03.9 Hypothyroidism, unspecified; I45.6 Pre-excitation syndrome; M41.9 Scoliosis, unspecified; Z91.030 Bee allergy status; Z79.899 Other long term (current) drug therapy; Z79.01 Long term (current) use of anticoagulants

== ENCOUNTER → 2021-08-11 | Outpatient (CLI) | payer OTHER ==
[~2021-08-11] MED LIST changes: +ISOVUE-370 76% 100ML VIAL As Ordered ONE
--- NOTE | 2021-08-11 15:13 | REP ---
INDICATION: DVT OF LOWER EXT COMPARISON: 08/05/2017 the only prior TECHNIQUE: CT angiography of the chest attention pulmonary arteries after the intravenous administration of 75 cc Isovue 370. FINDINGS: There is excellent visualization of the pulmonary arterial vasculature. There are no focal filling defects present that would be considered consistent with acute pulmonary emboli. There is no mediastinal or hilar adenopathy. There is a hiatal hernia status quo. There are no pleural or pericardial effusions. There is no change in the imaged upper abdomen. There is an unchanged sclerotic lesion in T6. Evaluation of the lung palmer shows no new abnormal nodules, masses, or opacities. There is a stable 6 mm size nodule in the left lower lobe. IMPRESSION: There is no evidence of a pulmonary embolism or significant change compared to the prior exam with findings as described above. <Electronically signed by Mario Powell > 08/11/21 [id number]
== END ==
LOC: M RAD 14:18
PROVIDERS: ATTEND Pediatrics
DX: I82.409 Acute embolism and thrombosis of unspecified deep veins of unspecified lower extremity (principal)
CPT/HCPCS: 71275; Q9967

== ENCOUNTER → 2021-12-23 | Outpatient (CLI) | payer OTHER ==
[~2021-12-23] MED LIST changes: -ISOVUE-370 76% 100ML VIAL As Ordered ONE; +LEVO75TA4 PO
== END ==
LOC: M RAD 12:32
PROVIDERS: ATTEND Surgery
DX: I82.512 Chronic embolism and thrombosis of left femoral vein (principal)

== ENCOUNTER → 2022-03-30 | Outpatient (CLI) | payer OTHER | LOC: M CARPUL 13:38 | PROVIDERS: ATTEND Pediatrics | DX: I35.8 Other nonrheumatic aortic valve disorders (principal); I34.8 Other nonrheumatic mitral valve disorders ==

== ENCOUNTER → 2022-07-21 | Outpatient (REF) | payer OTHER, MEDICAID | LOC: M SFHCWAGY 17:24 | PROVIDERS: ATTEND Nurse Practitioner Family | DX: Z12.4 Encounter for screening for malignant neoplasm of cervix (principal); Z77.9 Other contact with and (suspected) exposures hazardous to health ==

== ENCOUNTER → 2022-07-27 | Outpatient (CLI) | payer OTHER | LOC: M WHC 08:51 | PROVIDERS: ATTEND Nurse Practitioner Family | DX: Z12.31 Encounter for screening mammogram for malignant neoplasm of breast (principal); R92.8 Other abnormal and inconclusive findings on diagnostic imaging of breast ==

== ENCOUNTER → 2022-08-23 | Outpatient (REF) | payer OTHER ==
[2022-08-23 17:26] LABS: BASO # 0.1 10^3/uL (0.0-0.2); EOS # 0.4 10^3/uL (0.0-0.5); EOS % 4.2 % (0.0-3.0); HEMATOCRIT 39.5 % (36.0-47.0); HEMOGLOBIN 12.1 g/dl (12.0-15.5); LYMPH # 2.2 10^3/uL (1.5-5.0); LYMPH % 23.8 % (24.0-44.0); MEAN CORPUSCULAR HEMOGLOBIN 28.8 pg (27.0-33.0); MEAN CORPUSCULAR HGB CONC 30.6 g/dl (32.0-36.5); MONO # 0.6 10^3/uL (0.0-0.8); MONO % 6.9 % (2.0-8.0); NEUTROPHILS # 5.8 10^3/uL (1.5-8.5); NEUTROPHILS % 63.8 % (36.0-66.0); PLATELET COUNT, AUTOMATED 276 10^3/uL (150-450); WHITE BLOOD COUNT 9.2 10^3/uL (4.0-10.0)
[2022-08-23 18:11] LABS: ALBUMIN 3.5 GM/DL (3.2-5.2); ALT/SGPT 12 U/L (12-78); BILIRUBIN,TOTAL 0.3 MG/DL (0.2-1.0); BLOOD UREA NITROGEN 10 MG/DL (7-18); CALCIUM LEVEL 9.4 MG/DL (8.5-10.1); CARBON DIOXIDE LEVEL 26 MEQ/L (21-32); CHLORIDE LEVEL 105 MEQ/L (98-107); CHOLESTEROL LEVEL 230 MG/DL (<200); CHOLESTEROL RISK RATIO 4.181 (<5); CREATININE FOR GFR 0.88 MG/DL (0.55-1.30); GLOMERULAR FILTRATION RATE > 60.0 (>58); GLUCOSE, FASTING 93 MG/DL (70-100); HDL CHOLESTEROL 55 MG/DL (>40); LDL CHOLESTEROL 148 MG/DL (<100); NON-HDL-C 175 MG/DL; SODIUM LEVEL 136 MEQ/L (136-145); TOTAL PROTEIN 7.1 GM/DL (6.4-8.2); TRIGLYCERIDES LEVEL 135 MG/DL (<150)
== END ==
LOC: M LAB REF 16:35
PROVIDERS: ATTEND Pediatrics
DX: E66.01 Morbid (severe) obesity due to excess calories (principal); E78.5 Hyperlipidemia, unspecified; E03.9 Hypothyroidism, unspecified

== ENCOUNTER → 2022-12-20 | Outpatient (CLI) | payer OTHER | LOC: M PLAIMG 12:08 | PROVIDERS: ATTEND Pediatrics | DX: R91.1 Solitary pulmonary nodule (principal) ==

== ENCOUNTER → 2022-12-20 | Outpatient (CLI) | payer OTHER | LOC: M WHC 12:11 | PROVIDERS: ATTEND Nurse Practitioner Family | DX: Z53.9 Procedure and treatment not carried out, unspecified reason (principal) ==

== ENCOUNTER → 2023-01-17 | Outpatient (REF) | payer OTHER ==
[2023-01-17 18:48] LABS: BASO # 0.1 10^3/uL (0.0-0.2); BASO % 1.6 % (0.0-1.0); EOS # 0.4 10^3/uL (0.0-0.5); EOS % 4.4 % (0.0-3.0); HEMATOCRIT 42.2 % (36.0-47.0); HEMOGLOBIN 13.1 g/dl (12.0-15.5); LYMPH # 2.4 10^3/uL (1.5-5.0); LYMPH % 29.2 % (24.0-44.0); MEAN CORPUSCULAR HEMOGLOBIN 29.9 pg (27.0-33.0); MEAN CORPUSCULAR VOLUME 96.3 fl (80.0-96.0); MONO # 0.6 10^3/uL (0.0-0.8); MONO % 7.9 % (2.0-8.0); NEUTROPHILS # 4.6 10^3/uL (1.5-8.5); NEUTROPHILS % 56.3 % (36.0-66.0); PLATELET COUNT, AUTOMATED 264 10^3/uL (150-450); RED BLOOD COUNT 4.38 10^6/uL (4.00-5.40); WHITE BLOOD COUNT 8.2 10^3/uL (4.0-10.0)
[2023-01-17 19:19] LABS: TOTAL IRON BINDING CAPACITY 338 UG/DL (250-425)
[2023-01-17 19:21] LABS: IRON (FE) 52 UG/DL (50-170); PERCENT SATURATION 15.4 % (13.2-45.0)
[2023-01-17 19:23] LABS: ALBUMIN 3.6 G/DL (3.2-5.2); ALKALINE PHOSPHATASE 118 U/L (46-116); ALT/SGPT 9 U/L (7.0-40); AST/SGOT 14 U/L (<34); BILIRUBIN,TOTAL 0.4 MG/DL (0.3-1.2); BLOOD UREA NITROGEN 12 MG/DL (9-23); CALCIUM LEVEL 9.3 MG/DL (8.5-10.1); CARBON DIOXIDE LEVEL 22 MMOL/L (20-31); CHLORIDE LEVEL 107 MMOL/L (98-107); CHOLESTEROL LEVEL 203 MG/DL (<200); CHOLESTEROL RISK RATIO 4.37 (<5); CREATININE FOR GFR 0.85 MG/DL (0.55-1.30); GLOMERULAR FILTRATION RATE > 60.0 (>58); GLUCOSE, FASTING 84 MG/DL (60-100); HDL CHOLESTEROL 46.4 MG/DL (>40); LDL CHOLESTEROL 134.4 MG/DL (<100); NON-HDL-C 156.6 MG/DL; POTASSIUM SERUM 4.5 MMOL/L (3.5-5.1); SODIUM LEVEL 139 MMOL/L (136-145); THYROID STIMULATING HORMONE 0.555 uIU/ML (0.55-4.78); TRIGLYCERIDES LEVEL 111 MG/DL (<150)
[2023-01-17 20:20] LABS: HEMOGLOBIN A1c 4.6 % (4.0-6.0)
== END ==
LOC: M LAB REF 17:01
PROVIDERS: ATTEND Pediatrics
DX: E78.5 Hyperlipidemia, unspecified (principal); E66.01 Morbid (severe) obesity due to excess calories; E61.1 Iron deficiency; E03.9 Hypothyroidism, unspecified

== ENCOUNTER → 2023-05-04 | Outpatient (CLI) | payer OTHER | LOC: M SLEEP HO 10:51 | PROVIDERS: ATTEND Internal Medicine Cardiovascular Disease | DX: G47.33 Obstructive sleep apnea (adult) (pediatric) (principal); R60.0 Localized edema; R00.1 Bradycardia, unspecified ==

== ENCOUNTER → 2023-07-08 | Outpatient (REF) | payer OTHER, MEDICAID ==
[2023-07-08 13:30] LABS: BASO # 0.1 10^3/uL (0.0-0.2); BASO % 2.1 % (0.0-1.0); EOS # 0.3 10^3/uL (0.0-0.5); EOS % 5.2 % (0.0-3.0); HEMATOCRIT 34.5 % (36.0-47.0); HEMOGLOBIN 9.7 g/dl (12.0-15.5); LYMPH % 29.7 % (24.0-44.0); MEAN CORPUSCULAR HEMOGLOBIN 25.8 pg (27.0-33.0); MEAN CORPUSCULAR HGB CONC 28.1 g/dl (32.0-36.5); MEAN CORPUSCULAR VOLUME 91.8 fl (80.0-96.0); MONO # 0.6 10^3/uL (0.0-0.8); MONO % 9.6 % (2.0-8.0); NEUTROPHILS # 3.5 10^3/uL (1.5-8.5); NEUTROPHILS % 52.8 % (36.0-66.0); PLATELET COUNT, AUTOMATED 250 10^3/uL (150-450); RED BLOOD COUNT 3.76 10^6/uL (4.00-5.40); WHITE BLOOD COUNT 6.6 10^3/uL (4.0-10.0)
[2023-07-08 13:34] LABS: PERCENT SATURATION 5.1 % (13.2-45.0)
[2023-07-08 13:39] LABS: FERRITIN 11.2 NG/ML (7.3-270.7); THYROID STIMULATING HORMONE 2.585 uIU/ML (0.55-4.78)
== END ==
LOC: M LAB REF 12:25
PROVIDERS: ATTEND Pediatrics
DX: E03.9 Hypothyroidism, unspecified (principal); E61.1 Iron deficiency

== ENCOUNTER → 2023-11-01 | Outpatient (CLI) | payer OTHER ==
[~2023-11-01] MED LIST changes: +ACET1TAB37 PO; +ALBU6.7H6 INH; +CVS-161 PO; +LEVO112T2 PO; +MULT-90 PO
== END ==
LOC: M WHC 12:05
PROVIDERS: ATTEND Internal Medicine Hematology & Oncology
DX: Z12.31 Encounter for screening mammogram for malignant neoplasm of breast (principal)

== ENCOUNTER → 2023-11-15 | Outpatient (CLI) | payer OTHER | LOC: M WHC 10:08 | PROVIDERS: ATTEND Obstetrics & Gynecology | DX: N92.6 Irregular menstruation, unspecified (principal) ==

== ENCOUNTER → 2023-11-23 | Outpatient (REF) | payer OTHER, MEDICAID | LOC: M SFHCWAGY 17:50 | PROVIDERS: ATTEND Obstetrics & Gynecology | DX: N93.9 Abnormal uterine and vaginal bleeding, unspecified (principal) ==

== ENCOUNTER → 2024-02-15 | Outpatient (REF) | payer OTHER ==
[2024-02-15 13:22] LABS: BASO # 0.1 10^3/uL (0.0-0.2); BASO % 1.4 % (0.0-1.0); EOS # 0.3 10^3/uL (0.0-0.5); EOS % 3.6 % (0.0-3.0); HEMATOCRIT 41.5 % (36.0-47.0); HEMOGLOBIN 13.5 g/dl (12.0-15.5); LYMPH # 2.5 10^3/uL (1.5-5.0); LYMPH % 29.4 % (24.0-44.0); MEAN CORPUSCULAR HEMOGLOBIN 30.1 pg (27.0-33.0); MEAN CORPUSCULAR HGB CONC 32.5 g/dl (32.0-36.5); MEAN CORPUSCULAR VOLUME 92.6 fl (80.0-96.0); MONO # 0.7 10^3/uL (0.0-0.8); MONO % 7.7 % (2.0-8.0); NEUTROPHILS # 4.9 10^3/uL (1.5-8.5); NEUTROPHILS % 57.1 % (36.0-66.0); PLATELET COUNT, AUTOMATED 259 10^3/uL (150-450); RED BLOOD COUNT 4.48 10^6/uL (4.00-5.40); WHITE BLOOD COUNT 8.7 10^3/uL (4.0-10.0)
[2024-02-15 14:12] LABS: ALBUMIN 3.7 G/DL (3.2-5.2); ALKALINE PHOSPHATASE 123 U/L (46-116); ALT/SGPT 10 U/L (7.0-40); AST/SGOT 11 U/L (<34); BILIRUBIN,TOTAL 0.5 MG/DL (0.3-1.2); BLOOD UREA NITROGEN 14 MG/DL (9-23); CALCIUM LEVEL 9.6 MG/DL (8.5-10.1); CARBON DIOXIDE LEVEL 28 MMOL/L (20-31); CHLORIDE LEVEL 102 MMOL/L (98-107); CREATININE FOR GFR 0.91 MG/DL (0.55-1.30); FERRITIN 19.3 NG/ML (7.3-270.7); FOLLICLE STIMULATING HORMONE 35.4 mIU/ML; GLOMERULAR FILTRATION RATE > 60.0 (>58); GLUCOSE, FASTING 85 MG/DL (60-100); LUTEINIZING HORMONE 42.4 mIU/ML; POTASSIUM SERUM 4.6 MMOL/L (3.5-5.1); SODIUM LEVEL 136 MMOL/L (136-145); THYROID STIMULATING HORMONE 0.057 uIU/ML (0.55-4.78)
== END ==
LOC: M LAB REF 12:53
PROVIDERS: ATTEND Pediatrics
DX: E61.1 Iron deficiency (principal); N95.1 Menopausal and female climacteric states; K21.9 Gastro-esophageal reflux disease without esophagitis; E03.9 Hypothyroidism, unspecified

== ENCOUNTER 2024-03-12 05:57 | Day surgery (SDC) | payer OTHER ==
[~2024-03-12] VITALS: Ht 149.9 cm; Wt 98.3 kg
[2024-03-12] VITALS (8 sets, daily range): BP systolic 110–135; BP diastolic 62–82; TEMP 97.5–97.9; O2SAT 94–97
[~2024-03-12 05:57] MED LIST changes: +FLON1SPR; +PROA1AER2 INH; +SYNT100T PO
[2024-03-12 06:57] LABS: HEMATOCRIT 41.3 % (36.0-47.0); HEMOGLOBIN 13.3 g/dl (12.0-15.5); MEAN CORPUSCULAR HEMOGLOBIN 29.7 pg (27.0-33.0); MEAN CORPUSCULAR HGB CONC 32.2 g/dl (32.0-36.5); MEAN CORPUSCULAR VOLUME 92.2 fl (80.0-96.0); PLATELET COUNT, AUTOMATED 257 10^3/uL (150-450); RED BLOOD COUNT 4.48 10^6/uL (4.00-5.40); WHITE BLOOD COUNT 8.5 10^3/uL (4.0-10.0)
[2024-03-12] MEDS: METHYLENE BLUE 0.5% (5MG/ML) 10 ML AMP (PROVAYBLUE) As Ordered ONE (07:15)
[2024-03-12] MEDS: ceFAZolin SOD 2 GM in IV 1 EA IV ONE (07:30)
[2024-03-12] MEDS ORDERED: propofoL 200 MG/20 ML VIAL As Ordered ONE (08:03)
[2024-03-12] MEDS ORDERED: MIDAZOLAM INJ 2MG/2ML VIAL As Ordered ONE (08:03)
[2024-03-12] MEDS ORDERED: HYDROmorphone HCL 2MG/ML 1ML VIAL As Ordered ONE (08:03)
[2024-03-12] MEDS ORDERED: fentaNYL 100 MCG/2 ML INJECTION As Ordered ONE (08:03)
[2024-03-12] MEDS ORDERED: ONDANSETRON 4MG 2ML VIAL As Ordered ONE (08:03)
[2024-03-12] MEDS ORDERED: SUGAMMADEX SODIUM 500 MG/5 ML VIAL (BRIDION) As Ordered ONE (08:03)
[2024-03-12] MEDS ORDERED: ROCURONIUM BROMIDE 50MG/5ML VIAL As Ordered ONE (08:03)
[2024-03-12] MEDS ORDERED: LIDOCAINE 2% 100MG/5ML SDV (FOR ANES.) As Ordered ONE (08:03)
[2024-03-12] MEDS ORDERED: ACETAMINOPHEN 1000MG 100ML IV BAG As Ordered ONE (08:03)
[2024-03-12] MEDS ORDERED: GLYCOPYRROLATE INJ 0.2 MG/ML 2 ML VIAL As Ordered ONE (08:12)
[2024-03-12] MEDS ORDERED: fentaNYL 100 MCG/2 ML INJECTION IV PRN (09:50)
[2024-03-12] MEDS ORDERED: HYDROMORPHONE HCL 0.5 MG/ 0.5 ML SYRINGE IV PRN (09:50)
[2024-03-12] MEDS ORDERED: oxyCODONE 5MG TAB PO PRN (09:50)
[2024-03-12] MEDS: ONDANSETRON 4MG 2ML VIAL IV PRN (10:15)
[2024-03-12] MEDS: LR 1,000 ML IV SCH ×2 (10:16→11:58)
[2024-03-12] MEDS ORDERED: ONDANSETRON 4MG 2ML VIAL IV PRN (11:45)
[2024-03-12] MEDS ORDERED: PERCOCET 5MG/325MG TAB PO PRN (11:45)
[2024-03-12] MEDS ORDERED: HOME MED LIST COMPLETE! XX SCH (15:00)
[2024-03-12] MEDS ORDERED: ACET1TAB55 PO (15:00)
[2024-03-12] MEDS: KETOROLAC 30 MG/ML 1ML VIAL IV SCH (16:26)
[2024-03-12] MEDS: FLUTICASONE PROP 0.05% NASAL SPRAY 16 GM (FLONASE) NARES SCH (18:08)
[2024-03-12] MEDS: SERTRALINE 100 MG TAB PO SCH (18:08)
[2024-03-12] MEDS: PERCOCET 5MG/325MG TAB PO PRN (20:57)
[2024-03-13] VITALS: BP 111/67; TEMP 98.3; O2SAT 95
[2024-03-13 06:00] VITALS: BP 108/57; TEMP 98; O2SAT 95
[2024-03-13] MEDS: LEVOTHYROXINE 100MCG TABLET (0.1MG) PO SCH (06:00)
[2024-03-13 07:39] LABS: HEMATOCRIT 33.9 % (36.0-47.0); MEAN CORPUSCULAR HEMOGLOBIN 29.6 pg (27.0-33.0); MEAN CORPUSCULAR HGB CONC 31.6 g/dl (32.0-36.5); MEAN CORPUSCULAR VOLUME 93.9 fl (80.0-96.0); PLATELET COUNT, AUTOMATED 214 10^3/uL (150-450); RED BLOOD COUNT 3.61 10^6/uL (4.00-5.40); WHITE BLOOD COUNT 10.8 10^3/uL (4.0-10.0)
[2024-03-13 07:46] LABS: HEMOGLOBIN 10.7 g/dl (12.0-15.5)
[2024-03-13 08:00] VITALS: BP 111/69; TEMP 98.6; O2SAT 95
[2024-03-13] MEDS: APIXABAN 5 MG TAB (ELIQUIS) PO SCH (09:35)
[2024-03-13] MEDS: PANTOPRAZOLE 40MG TAB (PROTONIX) PO SCH (09:35)
== END 2024-03-13 11:44 | disposition home or self-care (01) ==
LOC: M SDC 05:57 → M PED 11:00 → M SDC 03-13 11:44
PROVIDERS: ATTEND Obstetrics & Gynecology
DX: N83.291 Other ovarian cyst, right side (principal); D25.1 Intramural leiomyoma of uterus; D25.2 Subserosal leiomyoma of uterus; N93.9 Abnormal uterine and vaginal bleeding, unspecified; I45.6 Pre-excitation syndrome; E03.9 Hypothyroidism, unspecified; K21.9 Gastro-esophageal reflux disease without esophagitis; Z86.718 Personal history of other venous thrombosis and embolism; M54.9 Dorsalgia, unspecified; J45.909 Unspecified asthma, uncomplicated; R06.83 Snoring; F41.9 Anxiety disorder, unspecified; F32.A Depression, unspecified; M19.90 Unspecified osteoarthritis, unspecified site; Z91.030 Bee allergy status; Z79.899 Other long term (current) drug therapy; Z79.01 Long term (current) use of anticoagulants
CPT/HCPCS: 36415; 58571; 58662; 81025; 85027; 86850; 86900; 86901; 88305; 88307; 96361; 96374; 96376; J0131; J0665; J0690; J1100; J1170; J1885; J2250; J2405; J3010; S2900

== ENCOUNTER → 2024-05-09 | Outpatient (REF) | payer OTHER, MEDICAID ==
[~2024-05-09] MED LIST changes: +ACET1TAB55 PO
[2024-05-09 18:35] LABS: BASO # 0.1 10^3/uL (0.0-0.2); BASO % 1.7 % (0.0-1.0); EOS # 0.3 10^3/uL (0.0-0.5); EOS % 4.1 % (0.0-3.0); HEMATOCRIT 42.1 % (36.0-47.0); LYMPH # 2.4 10^3/uL (1.5-5.0); LYMPH % 29.6 % (24.0-44.0); MEAN CORPUSCULAR HEMOGLOBIN 27.8 pg (27.0-33.0); MEAN CORPUSCULAR HGB CONC 30.9 g/dl (32.0-36.5); MEAN CORPUSCULAR VOLUME 90.1 fl (80.0-96.0); MONO # 0.7 10^3/uL (0.0-0.8); MONO % 8.3 % (2.0-8.0); NEUTROPHILS # 4.5 10^3/uL (1.5-8.5); NEUTROPHILS % 55.7 % (36.0-66.0); PLATELET COUNT, AUTOMATED 256 10^3/uL (150-450); RED BLOOD COUNT 4.67 10^6/uL (4.00-5.40)
[2024-05-09 19:19] LABS: FERRITIN 6.3 NG/ML (7.3-270.7); THYROID STIMULATING HORMONE 2.001 uIU/ML (0.55-4.78)
[2024-05-09 19:26] LABS: CHOLESTEROL RISK RATIO 5.26 (<5); HDL CHOLESTEROL 48.8 MG/DL (>40); LDL CHOLESTEROL 174.8 MG/DL (<100); NON-HDL-C 208.2 MG/DL
[2024-05-09 19:28] LABS: PERCENT SATURATION 13.1 % (13.2-45.0)
== END ==
LOC: M LAB REF 16:38
PROVIDERS: ATTEND Pediatrics
DX: E78.5 Hyperlipidemia, unspecified (principal); E03.9 Hypothyroidism, unspecified; E61.1 Iron deficiency

== ENCOUNTER → 2024-10-26 | Outpatient (REF) | payer OTHER, MEDICAID ==
[2024-10-26 16:53] LABS: PERCENT SATURATION 16.3 % (13.2-45.0)
[2024-10-26 16:56] LABS: THYROID STIMULATING HORMONE 1.602 uIU/ML (0.55-4.78)
[2024-10-26 16:57] LABS: FERRITIN 48.1 NG/ML (7.3-270.7)
== END ==
LOC: M LAB REF 16:04
PROVIDERS: ATTEND Pediatrics
DX: E61.1 Iron deficiency (principal); E03.9 Hypothyroidism, unspecified

== ENCOUNTER → 2024-11-05 | Outpatient (CLI) | payer OTHER | LOC: M WHC 12:18 | PROVIDERS: ATTEND Pediatrics | DX: Z12.31 Encounter for screening mammogram for malignant neoplasm of breast (principal) ==

== ENCOUNTER → 2025-02-01 | Outpatient (REF) | payer OTHER ==
[2025-02-01 18:21] LABS: CHOLESTEROL RISK RATIO 5.15 (<5); HDL CHOLESTEROL 44.4 MG/DL (>40); LDL CHOLESTEROL 147.4 MG/DL (<100); NON-HDL-C 184.6 MG/DL
[2025-02-01 18:35] LABS: HEMOGLOBIN A1c 5.2 % (4.0-6.0)
== END ==
LOC: M LAB REF 17:29
PROVIDERS: ATTEND Pediatrics
DX: E66.01 Morbid (severe) obesity due to excess calories (principal); Z68.42 Body mass index [BMI] 45.0-49.9, adult

== ENCOUNTER → 2025-05-10 | Outpatient (CLI) | payer OTHER ==
[2025-05-10 13:17] LABS: BASO # 0.1 10^3/uL (0.0-0.2); BASO % 1.2 % (0.0-1.0); EOS # 0.3 10^3/uL (0.0-0.5); EOS % 3.8 % (0.0-3.0); LYMPH # 2.4 10^3/uL (1.5-5.0); LYMPH % 27.3 % (24.0-44.0); MONO # 0.7 10^3/uL (0.0-0.8); MONO % 8.0 % (2.0-8.0); NEUTROPHILS # 5.3 10^3/uL (1.5-8.5); NEUTROPHILS % 58.9 % (36.0-66.0); PLATELET COUNT, AUTOMATED 198 10^3/uL (150-450)
[2025-05-10 13:41] LABS: IRON (FE) 55.0 UG/DL (50-170); PERCENT SATURATION 16.4 % (13.2-45.0)
== END ==
LOC: M RAD 11:57
PROVIDERS: ATTEND Pediatrics
DX: I82.432 Acute embolism and thrombosis of left popliteal vein (principal); M79.605 Pain in left leg; M79.89 Other specified soft tissue disorders; E03.9 Hypothyroidism, unspecified; E61.1 Iron deficiency; Z86.718 Personal history of other venous thrombosis and embolism

== ENCOUNTER → 2025-07-10 | Outpatient (CLI) | payer OTHER ==
[~2025-07-10] MED LIST changes: +ACET-1592 PO; -ACET1TAB37 PO
== END ==
LOC: M RAD 11:54
PROVIDERS: ATTEND Pediatrics
DX: M79.605 Pain in left leg (principal)

== ENCOUNTER → 2025-09-10 | Outpatient (REF) | payer OTHER | LOC: M LAB REF 14:41 | PROVIDERS: ATTEND Pediatrics | DX: E03.9 Hypothyroidism, unspecified (principal) ==